=== PATIENT | male | born 1985 | race Caucasian/White ===

== ENCOUNTER → 2018-11-09 | Outpatient (CLI) | payer MEDICAID, SELFPAY ==
[2018-11-09 12:35] VITALS: BMI 47.0
--- NOTE | 2018-11-09 12:48 | RAD_ITS ---
STUDY: X-RAY - PELVIS AND RIGHT HIP REASON FOR EXAM: Right hip pain. TECHNIQUE: 2 views of the pelvis and hip. COMPARISON: None. FINDINGS: There is a small pelvic phlebolith. Normal bilateral iliac wings, sacroiliac joints and visualized sacrum. Normal bilateral superior and inferior pubic rami. Normal pubic symphysis. Normal bilateral ischial tuberosities. There is subchondral mottling of the right femoral head especially on the frog-leg view, possibly representing avascular necrosis. Normal acetabulum. Normal hip joint. RAD/HIP, UNI W/ Pelvis 2-3 Views IMPRESSION: Possible avascular necrosis of the right femoral head. Electronically Signed: Shaggy Huff MD at 15:20 EDT Tel , Service support ,
== END | disposition home or self-care (01) ==
LOC: HPRAD 12:47
PROVIDERS: PCP Nurse Practitioner Family; Referring Provider Orthopaedic Surgery; Visit Provider Orthopaedic Surgery
DX: R10.31 Right lower quadrant pain (principal)
CPT/HCPCS: 73502

== ENCOUNTER → 2018-12-13 | Outpatient (CLI) | payer MEDICAID, SELFPAY ==
[2018-11-09 12:35] VITALS: BMI 47.0
--- NOTE | 2018-12-13 16:54 | MRI_ITS ---
STUDY: MRI RIGHT HIP REASON FOR EXAM: Right hip pain and groin pain for one year. TECHNIQUE: Standardized fat and water weighted pulse sequences were obtained in all 3 orthogonal planes. COMPARISON: Radiographs 11/09/2018. FINDINGS: There is a small right hip joint effusion (proton density sagittal images 13, 14). Normal acetabulum. Normal labrum. There is a subchondral crescentic signal alteration of the superior right femoral head (T1 coronal images 21-23) with associated bone edema (inversion recovery coronal images 21-23) consistent with avascular necrosis without demonstrated subchondral collapse. Normal femoral neck and intratrochanteric region. There is a small herniation pit in the contralateral left femoral head/neck junction with mild adjacent bone edema (inversion recovery coronal image 21). Normal gluteus minimus, medius and iliopsoas tendons and distal insertions. There is no trochanteric, iliopsoas or iliopectineal bursitis. Normal superior and inferior pubic rami. Normal pubic symphysis. Normal ischial tuberosity. Normal origin of the hamstring tendons. Normal visualized iliac wing, sacroiliac joint, and sacral ala. Normal visualized soft tissue structures of the pelvis. MRI/Lower Ext Joint Only (Routine) IMPRESSION: Avascular necrosis of the right femoral head. Small right hip joint effusion. Electronically Signed: Shaggy Huff MD at 10:29 EDT Tel , Service support ,
== END | disposition home or self-care (01) ==
LOC: MRI 16:53
PROVIDERS: Referring Provider Orthopaedic Surgery; Visit Provider Orthopaedic Surgery
DX: R29.898 Other symptoms and signs involving the musculoskeletal system (principal); M87.051 Idiopathic aseptic necrosis of right femur
CPT/HCPCS: 73721

== ENCOUNTER → 2020-01-17 11:38 | Outpatient (CLI) | payer OTHER, SELFPAY ==
[2019-09-01 09:24] VITALS: BMI 47.0
[2020-01-17 13:07] LABS: T4 Free Direct 0.84 ng/dL (0.76-1.46)
== END ==
PROVIDERS: Referring Provider Family Medicine; Visit Provider Family Medicine
DX: E03.9 Hypothyroidism, unspecified (principal)
CPT/HCPCS: 36415; 84439; 84443

== ENCOUNTER → 2020-05-03 14:52 | Outpatient (CLI) | payer OTHER, SELFPAY ==
[2020-04-02 13:51] VITALS: BMI 48.9
[2020-05-03 16:57] LABS: Free T3 3.7 pg/mL (2.18-3.98); T4 Free Direct 1.63 ng/dL (0.76-1.46); Thyroid Stim Hormone (TSH) 0.49 uIU/mL (0.358-3.74)
== END ==
PROVIDERS: Referring Provider Internal Medicine Endocrinology, Diabetes & Metabolism; Visit Provider Internal Medicine Endocrinology, Diabetes & Metabolism
DX: E03.8 Other specified hypothyroidism (principal); E06.3 Autoimmune thyroiditis
CPT/HCPCS: 36415; 84439; 84443; 84481

== ENCOUNTER → 2024-08-04 | Outpatient (CLI) | payer BC, SELFPAY ==
--- OUTSIDE RECORDS SUMMARY | 2024-08-04 07:25 | XMS RPT_ITS | CCD ---
Author Organization [facility] Care Team Providers Care Workgroup Leader Name Role Phone AYANNA CARPENTER. Referring Unavailable AYANNA CARPENTER Admitting Unavailable MILAN SERRATO Referring Unavail able SWIDARYLT, SAMIRA Iqbal Primary Care Unavailable MILAN SERRATO Attending Unavail able SELF, SELF Referring Unavailable SWIHART, SAMIRA Iqbal Primary Care Unavailable CIAYVESICHMILAN BENAVIDES Attending Unavail able SELF, SELF Referring Unavailable SWIDARYLT, SAMIRA Iqbal Primary Care Unavailable AYANNA CARPENTER Attending Unavailable SELF, SELF Referring Unavailable KAREEM, SAMIRA Iqbal Primary Care Unavailable MILAN SERRATO Attending Unavail able MILAN SERRATO Referring Unavail able SWILAWANDA, SAMIRA Iqbal Primary Care Unavailable MILAN SERRATO Attending Unavail able KAREEM, SAMIRA Iqbal Primary Care Unavailable AYANNA CARPENTER Attending Unavailable AYANNA CARPENTER Referring Unavailable SWIDARYLT, SAMIRA Iqbal Primary Care Unavailable SELF, SELF Referring Unavailable AYANNA CARPENTER Attending Unavailable KAREEM, SAMIRA Iqbal Primary Care Unavailable SELF, SELF Referring Unavailable AYANNA CARPENTER Attending Unavailable KAREEM, SAMIRA Iqbal Primary Care Unavailable AYANNA CARPENTER Referring Unavailable AYANNA CARPENTER Attending Unavailable TEN SAENZ Attending Unavailable SWIHART, SAMIRA Iqbal Primary Care Unavailable AYANNA CARPENTER Referring Unavailable AYANNA CARPENTER Attending Unavailable AYANNA CARPENTER Admitting Unavailable SELF, SELF Referring Unavailable IZABELHART, SAMIRA Iqbal Primary Care Unavailable MLIAN SERRATO Attending Unavail able Swihart Samira QUIROZ Unavailable Samira Serna CNP Primary Care Provider [facility] Referring Unavailable [facility] Primary Care Unavailable William Lincoln Attending Unavailable Medications Current Medications Medication Drug Class(es) Dates Sig (Normalized) Sig (Original) acetaminophen 325 mg oral tablet (1 source) Start: 10-09-2020 acetaminophen (TYLENOL) tablet 975 mg DISABILITY PLACARD (3 sources) Start: 09-12-2020 DISABILITY PLACARD Indications: Right hip pain Disability placard end date 01/09/2021 1 Each 0 09/12/2020 Active Start: 11-09-2019 End: 09-12-2020 DISABILITY PLACARD Indicatio ns: Avascular necrosis of bone of right hip Disability placard end date: 02/29/2020 Diagnosis code: Right hip pain 1 Each 0 11/09/2019 09/12/2020 Discontinued (Medication Reconciliation (suppress cancel msg)) levothyroxine sodium 0.1 mg oral tablet (5 sources) l-Thyroxine take 2 tablets by mouth once daily levothyroxine 100 MCG tablet Take 200 mcg by mouth daily. 0 Active multivitamin w/ minerals tablet (5 sources) take 1 tablet by mouth once daily multivitamin w/ minerals tablet Take 1 tablet by mouth daily. 0 Active Completed/Discontinued Medications Medication Drug Class(es) Dates Sig (Normalized) Sig (Original) calcium chloride 0.0014 meq/ml / potassium chloride 0.004 meq/ml / sodium chloride 0.103 meq/ml / sodium lactate 0.028 meq/ml injectable solution (1 source) Start: 10-09-2020 End: 10-09-2020 lactated ringers IV solution 1 ml haloperidol 5 mg/ml injection (1 source) Typical Antipsychotic Start: 10-09-2020 End: 10-09-2020 haloperidol lactate (HALDOL) injection 1 mg HYDROmorphone (DILAUDID) injection 0.2 mg (1 source) Start: 10-09-2020 End: 10-09-2020 HYDROmorphone (DILAUDID) injection 0.2 mg meloxicam 10 mg oral capsule (1 source) Nonsteroidal Anti-inflammatory Drug End: 09-12-2020 take 0.5 tablet by mouth twice daily Meloxicam 10 MG capsule Take by mouth. 0.5 tabs bid 0 09/12/2020 Discontinued (Medication Reconciliation (suppress cancel msg)) mupirocin 0.02 mg/mg nasal ointment (1 source) RNA Synthetase Inhibitor Antibacterial Start: 11-09-2019 End: 09-12-2020 apply 0.5 g nasal route twice daily mupirocin (Bactroban Nasal) 2 % Ointment Indications: Preoperative clearance Intranasal Approximately 0.5 gram applied into each nostril twice daily for 5 days ( Please dispense regular generic mupirocin ointment if nasal ointment is not available or not covered by insurance ) 22 g 0 11/09/2019 09/12/2020 Discontinued (Medication Reconciliation (suppress cancel msg)) oxyCODONE (1 source) Opioid Agonist Start: 10-09-2020 End: 10-09-2020 take 1 tablet by mouth every four hours as needed oxyCODONE (ROXICODONE) tablet 5 mg Problems Active Problems Problem Classification Problem Date Documented Da te Episodic/Chronic Nutritional deficiencies (1 source) Vitamin D deficiency; Translations: [Vitamin D deficiency, unspecified] Chronic Other bone disease and musculoskeletal deformities (7 sources) Avascular necrosis of bone of hip; Translations: [Idiopathic aseptic necrosis of right femur] Onset: 10-19-2019 10-19-2019 Chronic Other nutritional; endocrine; and metabolic disorders (1 source) Body mass index 40+ - severely obese; Translations: [Body mass index (BMI) 45.0-49.9, adult] Chronic Thyroid disorders (3 sources) Nini thyroiditis; Translations: [Autoimmune thyroiditis] Onset: 04-20-2024 Chronic Past or Other Problems Problem Classification Problem Date Documented Da te Episodic/Chronic Other non-traumatic joint disorders (2 sources) Pain in right hip joint; Translations: [Pain in right hip] Episodic Results Test Name Value Interpretation Reference Range Facility Endocrinology Visit Reporton 04-19-2024 Endocrinology Visit Report [facility] [address] [place] [address]. [address] [place] [address] OFFICE VISIT Date of Service: 04/19/24 MR#: [id number] Acct: [id number] Name: GENARO LAKE Rep #: [id number] : 1985 Provider: Aakash Pascual Age/Sex: 38/M Location: [facility] Status: Signed Intake Vital Signs 04/21/23 15:40 04/19/24 15:32 Height 5 ft 7.5 in 5 ft 7.5 in Weight: 380 lb BMI 58.6 BP 144/95 H Blood Pressure Location Rt brachial Position Sitting Pulse 83 Pulse Source Monitor Pulse Oximetry (%) 95 Oxygen Delivery Method room air Intake Visit Reasons: 1 Y FU Chief Complaint: Hypothyroidism Is patient in pain?: No Allergies No Known Allergies Allergy (Verified 04/19/24 15:33) Medications ???Medication ???Instructions ???Recorded ???Confirmed ???Type levothyroxine 200 mcg tablet 200 mcg PO DAILY #60 tabs 04/19/24 04/19/24 Rx PFSH Medical History Avascular necrosis of bone Gout Nini's disease Family History Mother Cancer Seizures Social History Smoking Status: Never smoker alcohol intake: never HPI HPI Chief Complaint: Hypothyroidism Details: GENARO LAKE, is a 38 M who presents to the office today for follow up. He has hypothyroidism. He is noncompliant with medication. I gave him a 60 tablet Rx with no refills one year ago and he still has some pills left. This time, he reports that he gets gout every time he takes levothyroxine. He has gained 36 pounds since last visit. He states he feels fine. ROS Const Constitutional: No fatigue or weight change ENT ENT: No dizziness/vertigo Cardio Cardiology: No chest pain at rest, chest pain with exertion, shortness of breath or palpitations Skin Skin: No wounds Endo Endocrine: No fatigue or weight change Exam Const General: cooperative, healthy appearing, comfortable, no acute distress, well developed and not cushingoid Nutritional Appearance: well nourished and obese Orientation: alert, awake and oriented x3 HENMT Head: normal to inspection Ears: hearing grossly normal bilaterally Nose: external nose normal Mouth: oral mucosae normal Eyes General: appearance normal, both eyes and all related structures Alignment and Position: alignment normal Periorbital: periorbital findings normal Eyelids: eyelids normal Conjunctivae: conjunctivae normal Neck Neck: normal visual inspection Neck mass: No Thyroid: other (difficult exam due to body habitus) Lymphatic: no lymphadenopathy noted Chest Chest palpation inspection: normal inspection of the chest Resp Effort Inspection: normal respiratory effort, able to speak in complete sentences, symmetric chest movement, no audible wheezes and no cough Auscultation: Bilateral: Clear to Auscultation Cardio Rate: regular rate Rhythm: regular rhythm Skin General: no rashes or lesions noted Neuro General: patient alert, patient awake and patient oriented x3 Cranial Nerves: CN's II-XI intact bilaterally Cognition: normal cognition Speech: speech normal Gait: normal gait Motor: muscle tone normal throughout Psych Appearance: grossly normal Mental Status: mental status grossly normal Mood: congruent mood Affect: normal affect Speech and Movement: speech and movement normal Attitude: cooperative Thought Process: normal Thought Content: normal Judgment: judgment good Assessment and Plan Assessment and Plan (1) 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 I explained that we cannot treat gout by keeping him hypothyroid. He agrees to take his medication for 2 months and then to have labs done. I have spent [30] minutes today reviewing labs, records and history. Time includes coordinating care, interpretation of tests, discussion with patient's other health care providers via telephone. This also includes time I spent with the patient for exam, treatment plan and education as well as documenting clinical information. 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 Normal [facility] XR HIP RIGHT 2 VIEWSon 02-20 XR HIP RIGHT 2 VIEWS EXAM: XR HIP RIGHT 4 VIEWS,, 02/20/2021 13:21 PM COMPARISON: Radiographs dated November 22, 2020 CLINICAL INDICATIONS: right hip pain RELEVANT CLINICAL HISTORY: M87.051:Avascular necrosis of bone of right hip AP pelvis (standing) / AP and 45 degree Quiroz view right hip and False profile view? (all views with 30 MM calibration marker. Please place close to affected hip at the level of the bone but without obscuring bone detail)?; FINDINGS: 4 images obtained. Soft Tissue: There is no obvious soft tissue swelling. Bone: Localized area of subchondral lucency noted along the weightbearing aspect of the right femoral head is unchanged. Similar degree of slight articular surface/subchondral collapse is again noted. Postoperative changes relating to core decompression. Hip: Joint spaces are stable. IMPRESSION: Similar appearance of avascular necrosis of the right femoral head with mild subchondral collapse and sequela of prior core decompression. Normal [facility] XR HIP RIGHT 2 VIEWSon 11-22 XR HIP RIGHT 2 VIEWS EXAM: XR HIP RIGHT 3 VIEWS,, 11/22/2020 10:13 AM COMPARISON: Compared to prior study dated October 24, 2020. CLINICAL INDICATIONS: s/p right core decompression RELEVANT CLINICAL HISTORY: M87.051:Avascular necrosis of bone of right hip FINDINGS: 3 images obtained. Soft Tissue: There is no obvious soft tissue swelling. Bone: No acute osseous abnormality. There is a lucent tract through the femoral neck compatible with history of prior core decompression. Ill-defined sclerosis in the femoral head compatible with avascular necrosis. There is some flattening of the convex contour superiorly suggestive of a mild degree of subchondral collapse. The appearance is grossly stable. Hip: The hip joint is anatomically aligned. IMPRESSION: Stable findings of avascular necrosis in the femoral head with mild subchondral collapse and prior core decompression. No new osseous abnormality. Normal [facility] XR HIP RIGHT 2 VIEWSon 10-24 XR HIP RIGHT 2 VIEWS EXAM: XR HIP RIGHT 2 VIEWS VIEWS,, 10/24/2020 10:25 AM COMPARISON: Right hip radiographs September 12, 2020 CLINICAL INDICATIONS: Right Hip Pain RELEVANT CLINICAL HISTORY: M87.051:Avascular necrosis of bone of right hip AP, AP Pelvis, Quiroz View (Standing); FINDINGS: 3 images obtained. Soft Tissue: There is no obvious soft tissue swelling. Bone: No acute osseous abnormality is identified. Status post core decompression on the right. Avascular necrosis of the right femoral head with slight collapse of the superior articular surface appears unchanged. Hip: The hip joint is anatomically aligned. IMPRESSION: Interval core decompression of the right proximal femur. Otherwise stable examination. Avascular necrosis with slight superior articular surface collapse is unchanged. Normal [facility] COVID-19, MOLECULARon 2020 SARS-CoV-2 (COVID-19) RNA KENNEDY+probe Ql (Unsp spec) Not detected Normal Not Detected [facility] Comment on above: Order Comment: Ayanna Carpenter [facility] - GeneralOrthopedic Sfgmkgc0309/26/2020End09/26/20 ; Result Comment: This test was performed under the FDA's Emergency Use Authorization (EUA). Testing was performed using the Reji SARS-CoV-2 RT-PCR assay on the Tamara Reji 6800 System. This test has not been approved for use in asymptomatic patients and its performance in this patient population has not been evaluated. Negative results do not rule out the presence of SARS-CoV-2/COVID-19. Fact sheets for this EUA can be found at the following links: For Healthcare Providers: https://www.fda.gov/media/654730/download For Patients: https://www.fda.gov/media/608947/download Performed By: #### L [id number] #### [facility] [address] [place] [address] Mauricio Lemus M.D. [id number] CBC AND ELECTRONIC DIFFon Basophils (Bld) [#/Vol] 0.05 10*3/uL Normal 0.00-0.09 [facility] Comment on above: Performed By: #### L [id number] #### [facility] (DEFAULT) [address] [address] Basophils/100 WBC (Bld) 0.8 % Normal [facility] Comment on above: Performed By: #### L [id number] #### [facility] (DEFAULT) [address] [place] [address] DIFF STATUS Electronic Differential Normal [facility] Comment on above: Performed By: #### L [id number] #### [facility] (DEFAULT) [address] [place] [address] Eosinophils (Bld) [#/Vol] 0.19 10*3/uL Normal 0.00-0.48 [facility] Comment on above: Performed By: #### L [id number] #### [facility] (DEFAULT) [address] [address] Eosinophils/100 WBC (Bld) 2.9 % Normal [facility] Comment on above: Performed By: #### L [id number] #### [facility] (DEFAULT) [address] [address] Hematocrit (Bld) [Volume fraction] 51.8 % High 39.6-48.8 [facility] Comment on above: Performed By: #### L [id number] #### [facility] (DEFAULT) [address] [address] Hemoglobin (Bld) [Mass/Vol] 16.3 g/dL Normal 13.4-16.8 [facility] Comment on above: Performed By: #### L [id number] #### [facility] (DEFAULT) [address] [address] Immature Grans % 0.5 % Normal [facility] Comment on above: Performed By: #### L [id number] #### [facility] (DEFAULT) [address] [address] Immature Grans Absolute <0.04 Normal <=0.08 [facility] Comment on above: Performed By: #### L [id number] #### [facility] (DEFAULT) [address] [place] [address] Lymphocytes (Bld) [#/Vol] 2.78 10*3/uL Normal 0.83-3.57 [facility] Comment on above: Performed By: #### L [id number] #### [facility] (DEFAULT) [address] [address] Lymphocytes/100 WBC (Bld) 42.2 % Normal [facility] Comment on above: Performed By: #### L [id number] #### [facility] (DEFAULT) [address] [address] MCV (RBC) [Entitic vol] 89.5 fL Normal 79.0-94.5 [facility] Comment on above: Performed By: #### L [id number] #### [facility] (DEFAULT) [address] [address] Mean Cell Hgb 28.2 pg Normal 26.1-33.3 [facility] Comment on above: Performed By: #### L [id number] #### [facility] (DEFAULT) [address] [address] Mean Cell Hgb Conc 31.5 g/dL Low 31.9-36.5 [facility] Comment on above: Performed By: #### L [id number] #### [facility] (DEFAULT) [address] [address] Monocytes (Bld) [#/Vol] 0.64 10*3/uL Normal 0.24-0.93 [facility] Comment on above: Performed By: #### L [id number] #### [facility] (DEFAULT) [address] [address] Monocytes/100 WBC (Bld) 9.7 % Normal [facility] Comment on above: Performed By: #### L [id number] #### [facility] (DEFAULT) [address] [address] Nucleated RBC 0.0 /100 WBC Normal <=0.2 [facility] Comment on above: Performed By: #### L [id number] #### [facility] (DEFAULT) [address] [address] Platelet mean volume (Bld) [Entitic vol] 9.2 fL Normal 8.7-12.3 [facility] Comment on above: Performed By: #### L [id number] #### [facility] (DEFAULT) [address] [place] [address] Platelets (Bld) [#/Vol] 340 10*3/uL High 146-337 [facility] Comment on above: Performed By: #### L [id number] #### [facility] (DEFAULT) [address] [place] [address] RBC (Bld) [#/Vol] 5.79 10*6/uL Normal 4.38-5.83 [facility] Comment on above: Performed By: #### L [id number] #### [facility] (DEFAULT) [address] [place] [address] RBC Distribution 15.4 % High 10.9-14.3 [facility] Comment on above: Performed By: #### L [id number] #### [facility] (DEFAULT) [address] [place] [address] Segs + Bands Auto 43.9 % Normal [facility] Comment on above: Performed By: #### L [id number] #### [facility] (DEFAULT) [address] [place] [address] Segs + Bands,Absolute Auto 2.89 K/uL Normal 1.57-6.19 [facility] Comment on above: Performed By: #### L [id number] #### [facility] (DEFAULT) [address] [place] [address] WBC (Bld) [#/Vol] 6.58 10*3/uL Normal 3.73-10.10 [facility] Comment on above: Performed By: #### L [id number] #### [facility] (DEFAULT) [address] [address] CHEM 6 (LYTES, BUN CREA)on 0 09-12-2020 Anion gap [Moles/Vol] 14 mmol/L 7 - 17 mmol/L [facility] Chloride [Moles/Vol] 103 mmol/L 98 - 108 mmol/L [facility] CO2 [Moles/Vol] 29 mmol/L 22 - 30 mmol/L [facility] Creatinine [Mass/Vol] 1.14 mg/dL 0.70 - 1.30 mg/dL [facility] Potassium [Moles/Vol] 4.3 mmol/L 3.5 - 5.0 mmol/L [facility] Sodium [Moles/Vol] 142 mmol/L 133 - 143 mmol/L [facility] Urea nitrogen [Mass/Vol] 18 mg/dL 7 - 22 mg/dL [facility] Urea nitrogen/Creatinine [Mass ratio] 16 mg/mg [facility] Anion gap [Moles/Vol] 14 mmol/L Normal 7-17 [facility] Comment on above: Performed By: #### C HM6 #### [facility] (DEFAULT) [address] [address] Chloride [Moles/Vol] 103 mmol/L Normal 98-108 [facility] Comment on above: Performed By: #### C HM6 #### [facility] (DEFAULT) [address] [address] CO2 [Moles/Vol] 29 mmol/L Normal 22-30 [facility] Comment on above: Performed By: #### C HM6 #### [facility] (DEFAULT) [address] [address] Creatinine [Mass/Vol] 1.14 mg/dL Normal 0.70-1.30 [facility] Comment on above: Performed By: #### C HM6 #### [facility] (DEFAULT) [address] [address] EST GFR, >=60 Normal >=60 [facility] Comment on above: Performed By: #### C HM6 #### [facility] (DEFAULT) [address] [place] [address] EST GFR,Non >=60 Normal >=60 [facility] Comment on above: Performed By: #### C HM6 #### [facility] (DEFAULT) [address] [place] [address] Potassium [Moles/Vol] 4.3 mmol/L Normal 3.5-5.0 [facility] Comment on above: Performed By: #### C HM6 #### [facility] (DEFAULT) [address] [place] [address] Sodium [Moles/Vol] 142 mmol/L Normal 133-143 [facility] Comment on above: Performed By: #### C HM6 #### [facility] (DEFAULT) [address] [place] [address] Urea nitrogen [Mass/Vol] 18 mg/dL Normal 7-22 [facility] Comment on above: Performed By: #### C HM6 #### [facility] (DEFAULT) [address] [place] [address] Urea nitrogen/Creatinine [Mass ratio] 16 mg/mg Normal [facility] Comment on above: Performed By: #### C HM6 #### [facility] (DEFAULT) [address] [place] [address] Laboratory - Chemistry and C hemistry - challengeon 09-12-2020 GFR/1.73 sq M.predicted MDRD (S/P/Bld) [Vol rate/Area] mL/min/{1.73_m2} >=60 mL/min/1.73sq M [facility] PT,INR,PTTon 09-12-2020 aPTT Coag (Bld) [Time] 30.8 s Normal 24.0-34.3 [facility] Comment on above: Performed By: #### P TPTT #### [facility] (DEFAULT) [address] [place] [address] INR Coag (PPP) [Relative time] 1.0 {INR} Normal 0.9-1.1 [facility] Comment on above: Performed By: #### P TPTT #### [facility] (DEFAULT) [address] [place] [address] PT Coag (PPP) [Time] 13.4 s Normal 11.9-14.2 [facility] Comment on above: Performed By: #### P TPTT #### [facility] (DEFAULT) [address] [place] [address] aPTT Coag (PPP) [Time] 30.[address] [facility] INR Coag (Bld) [Relative time] 1.0 {INR} [facility] Interpretation and review of laboratory results Normal [facility] PT Coag (PPP) [Time] 13.4 s [facility] TSH W/FT4 REFLEXon Interpretation and review of laboratory results Normal [facility] TSH Qn 0.692 m[IU]/L [facility] TSH 0.692 uIU/mL Normal 0.550-4.780 [facility] Comment on above: Performed By: #### T SHQR #### [facility] (DEFAULT) [address] [place] [address] XR HIP RIGHT 2 VIEWSon 09-12 XR HIP RIGHT 2 VIEWS EXAM: XR HIP RIGHT 3 VIEWS, 09/12/2020 13:03 PM COMPARISON: Right hip radiographs 10/03/2019, MRI bilateral hips 10/19/2019 CLINICAL INDICATIONS: right hip pain RELEVANT CLINICAL HISTORY: M25.551:Right hip pain Standing AP pelvis / AP and 45 degree Quiroz view of right Hip, False profile view of right Hip - all views with;30 MM calibration marker. Please place close to affected hip at the level of the bone but without obscuring bone detail.; FINDINGS: 5 images obtained. Soft Tissue: There is no obvious soft tissue swelling. Bone: No acute osseous abnormality is identified. There is left-sided lumbosacral transitional anatomy. Hip: Avascular necrosis is seen in the right femoral head with mild superior femoral head flattening suggestive of early subchondral collapse. Avascular necrosis is seen in the left hip without subchondral collapse. IMPRESSION: Avascular necrosis of the femoral heads bilaterally with early subchondral collapse on the right. Left-sided lumbosacral transitional anatomy. Normal [facility] IMPRESSION: Avascular necrosis of the femoral heads bilaterally with early subchondral collapse on the right. Left-sided lumbosacral transitional anatomy. OLOGY EXAM: XR HIP RIGHT 3 VIEWS, 09/12/2020 13:03 PM COMPARISON: Right hip radiographs 10/03/2019, MRI bilateral hips 10/19/2019 CLINICAL INDICATIONS: right hip pain RELEVANT CLINICAL HISTORY: M25.551:Right hip pain Standing AP pelvis / AP and 45 degree Quiroz view of right Hip, False profile view of right Hip - all views with;30 MM calibration marker. Please place close to affected hip at the level of the bone but without obscuring bone detail.; FINDINGS: 5 images obtained. Soft Tissue: There is no obvious soft tissue swelling. Bone: No acute osseous abnormality is identified. There is left-sided lumbosacral transitional anatomy. Hip: Avascular necrosis is seen in the right femoral head with mild superior femoral head flattening suggestive of early subchondral collapse. Avascular necrosis is seen in the left hip without subchondral collapse. [facility] Gus Pleitez MD - 09/12/2020 EXAM: XR HIP RIGHT 3 VIEWS, 09/12/2020 13:03 PM COMPARISON: Right hip radiographs 10/03/2019, MRI bilateral hips 10/19/2019 CLINICAL INDICATIONS: right hip pain RELEVANT CLINICAL HISTORY: M25.551:Right hip pain Standing AP pelvis / AP and 45 degree Quiroz view of right Hip, False profile view of right Hip - all views with;30 MM calibration marker. Please place close to affected hip at the level of the bone but without obscuring bone detail.; FINDINGS: 5 images obtained. Soft Tissue: There is no obvious soft tissue swelling. Bone: No acute osseous abnormality is identified. There is left-sided lumbosacral transitional anatomy. Hip: Avascular necrosis is seen in the right femoral head with mild superior femoral head flattening suggestive of early subchondral collapse. Avascular necrosis is seen in the left hip without subchondral collapse. IMPRESSION IMPRESSION: Avascular necrosis of the femoral heads bilaterally with early subchondral collapse on the right. Left-sided lumbosacral transitional anatomy. [facility] Radiology [facility] (narrative) [facility] RIGHT 2 VIEWSOrdered By: Gus Pleitez on 09-12-[address] [facility] Work Phone: CBC and Differentialon 10-20 Abs Baso 0.06 k/uL Normal <0.11 [facility] Comment on above: Performed By: #### C BCDIF, CMP, LIPB, TSH, FT4, VITD ####[facility] [id number] Telephone [place] [phone] Abs [place] 0.52 k/uL Normal <0.87 [facility] Comment on above: Performed By: #### C BCDIF, CMP, LIPB, TSH, FT4, VITD ####[facility] [id number] Telephone [place] [phone] Abs Neut 3.93 k/uL Normal 1.45-7.50 [facility] Comment on above: Performed By: #### C BCDIF, CMP, LIPB, TSH, FT4, VITD ####[facility] [id number] Telephone [place] [phone] Absolute nRBC <0.01 Normal <0.01 [facility] Comment on above: Performed By: #### C BCDIF, CMP, LIPB, TSH, FT4, VITD ####[facility] Neb8781 Telephone [phone] Basophils/100 WBC (Bld) 0.8 % Normal [facility] Comment on above: Performed By: #### C BCDIF, CMP, LIPB, TSH, FT4, VITD ####[place] [address] [phone] DTYPE ADIFF Normal [facility] Comment on above: Performed By: #### C BCDIF, CMP, LIPB, TSH, FT4, VITD ####[place] [address] Telephone [place] [phone] Eosinophils (Bld) [#/Vol] 0.24 10*3/uL Normal <0.46 [facility] Comment on above: Performed By: #### C BCDIF, CMP, LIPB, TSH, FT4, VITD ####[place] [address] Telephone [place] [phone] Eosinophils/100 WBC (Bld) 3.1 % Normal [facility] Comment on above: Performed By: #### C BCDIF, CMP, LIPB, TSH, FT4, VITD ####[address] [place] [phone] Erythrocyte distribution width (RBC) [Ratio] 15.5 % High 11.5-15.0 [facility] Comment on above: Performed By: #### C BCDIF, CMP, LIPB, TSH, FT4, VITD ####[address] [place] [phone] Hematocrit (Bld) [Volume fraction] 46.2 % Normal 39.0-51.0 [facility] Comment on above: Performed By: #### C BCDIF, CMP, LIPB, TSH, FT4, VITD ####[place] [address] Telephone [place] [phone] Hemoglobin (Bld) [Mass/Vol] 13.7 g/dL Normal 13.0-17.0 [facility] Comment on above: Performed By: #### C BCDIF, CMP, LIPB, TSH, FT4, VITD ####[place] [address] Telephone [place], [place] [phone] Lymphocytes (Bld) [#/Vol] 2.87 10*3/uL Normal 1.00-4.00 [facility] Comment on above: Performed By: #### C BCDIF, CMP, LIPB, TSH, FT4, VITD ####[place] [address] Telephone [place], [place] [phone] Lymphocytes/100 WBC (Bld) 37.7 % Normal [facility] Comment on above: Performed By: #### C BCDIF, CMP, LIPB, TSH, FT4, VITD ####[address] [phone] MCH (RBC) [Entitic mass] 27.2 pG Normal 26.0-34.0 [facility] Comment on above: Performed By: #### C BCDIF, CMP, LIPB, TSH, FT4, VITD ####[address] [place], [place] [phone] MCHC (RBC) [Mass/Vol] 29.7 g/dL Low 30.5-36.0 [facility] Comment on above: Performed By: #### C BCDIF, CMP, LIPB, TSH, FT4, VITD ####[address] [place], [place] [phone] MCV (RBC) [Entitic vol] 91.7 fL Normal 80.0-100.0 [facility] Comment on above: Performed By: #### C BCDIF, CMP, LIPB, TSH, FT4, VITD ####[address] [place], [place] [phone] Monocytes/100 WBC (Bld) 6.8 % Normal [facility] Comment on above: Performed By: #### C BCDIF, CMP, LIPB, TSH, FT4, VITD ####[place] [address] Telephone [place] [phone] Neutrophils/100 WBC (Bld) 51.6 % Normal [facility] Comment on above: Performed By: #### C BCDIF, CMP, LIPB, TSH, FT4, VITD ####[place] [address] Telephone [place] [phone] NRBCs 0.0 /100 WBC Normal 0 [facility] Comment on above: Performed By: #### C BCDIF, CMP, LIPB, TSH, FT4, VITD ####[address] [place] [phone] Platelet mean volume (Bld) [Entitic vol] 10.4 fL Normal 9.0-12.7 [facility] Comment on above: Performed By: #### C BCDIF, CMP, LIPB, TSH, FT4, VITD ####[place] [phone] Platelets (Bld) [#/Vol] 358 10*3/uL Normal 150-400 [facility] Comment on above: Performed By: #### C BCDIF, CMP, LIPB, TSH, FT4, VITD ####[address] [place] [phone] RBC (Bld) [#/Vol] 5.04 10*6/uL Normal 4.20-6.00 [facility] Comment on above: Performed By: #### C BCDIF, CMP, LIPB, TSH, FT4, VITD ####[address] [place], [place] [phone] WBC (Bld) [#/Vol] 7.62 10*3/uL Normal 3.70-11.00 [facility] Comment on above: Performed By: #### C BCDIF, CMP, LIPB, TSH, FT4, VITD ####[facility] [id number] Telephone [place] [phone] Comp Metabolic Panelon 10-20 Albumin [Mass/Vol] 4.4 g/dL Normal 3.9-4.9 [facility] Comment on above: Performed By: #### C BCDIF, CMP, LIPB, TSH, FT4, VITD ####[place] [address] Telephone [place] [phone] ALP [Catalytic activity/Vol] 93 U/L Normal 38-113 [facility] Comment on above: Performed By: #### C BCDIF, CMP, LIPB, TSH, FT4, VITD ####[address] [place] [phone] ALT [Catalytic activity/Vol] 37 U/L Normal 10-54 [facility] Comment on above: Performed By: #### C BCDIF, CMP, LIPB, TSH, FT4, VITD ####[place] [address] Telephone [place] [phone] Anion gap [Moles/Vol] 13 mmol/L Normal 9-18 [facility] Comment on above: Performed By: #### C BCDIF, CMP, LIPB, TSH, FT4, VITD ####[address] [place] [phone] AST [Catalytic activity/Vol] 39 U/L Normal 14-40 [facility] Comment on above: Performed By: #### C BCDIF, CMP, LIPB, TSH, FT4, VITD ####[place] [address] Telephone [place] [phone] Bilirubin Ql (U) 0.3 mg/dL Normal 0.2-1.3 [facility] Comment on above: Performed By: #### C BCDIF, CMP, LIPB, TSH, FT4, VITD ####[place] [address] Telephone [place] [phone] Calcium [Mass/Vol] 10.1 mg/dL Normal 8.5-10.2 [facility] Lab Comment on above: Performed By: #### C BCDIF, CMP, LIPB, TSH, FT4, VITD ####[address] [place] [phone] Chloride [Moles/Vol] 101 mmol/L Normal 97-105 [facility] Comment on above: Performed By: #### C BCDIF, CMP, LIPB, TSH, FT4, VITD ####[address] [place] [phone] CO2 [Moles/Vol] 27 mmol/L Normal 22-30 [facility] Comment on above: Performed By: #### C BCDIF, CMP, LIPB, TSH, FT4, VITD ####[place] [address] Telephone [place] [phone] Creatinine [Mass/Vol] 1.26 mg/dL High 0.73-1.22 [facility] Comment on above: Performed By: #### C BCDIF, CMP, LIPB, TSH, FT4, VITD ####[place] [address] Telephone [place] [phone] eGFR- Amer. >60 Normal [facility] Comment on above: Performed By: #### C BCDIF, CMP, LIPB, TSH, FT4, VITD ####[place] [address] Telephone [place] [phone] GFR/1.73 sq M predicted among non-blacks MDRD (S/P/Bld) [Vol rate/Area] mL/min/{1.73_m2} Normal [facility] Comment on above: Performed By: #### C BCDIF, CMP, LIPB, TSH, FT4, VITD ####[place] [address] Telephone [place], [place] [phone] Glucose [Mass/Vol] 71 mg/dL Low 74-99 [facility] Comment on above: Performed By: #### C BCDIF, CMP, LIPB, TSH, FT4, VITD ####[place] [phone] Potassium [Moles/Vol] 4.4 mmol/L Normal 3.7-5.1 [facility] Comment on above: Performed By: #### C BCDIF, CMP, LIPB, TSH, FT4, VITD ####[place] [phone] Protein [Mass/Vol] 7.1 g/dL Normal 6.3-8.0 [facility] Comment on above: Performed By: #### C BCDIF, CMP, LIPB, TSH, FT4, VITD ####[address] [place], [place] [phone] Sodium [Moles/Vol] 141 mmol/L Normal 136-144 [facility] Comment on above: Performed By: #### C BCDIF, CMP, LIPB, TSH, FT4, VITD ####[place] [address] Telephone [place], [place] [phone] Urea nitrogen [Mass/Vol] 18 mg/dL Normal 9-24 [facility] Comment on above: Performed By: #### C BCDIF, CMP, LIPB, TSH, FT4, VITD ####[place] [address] Telephone [place] [phone] Free T4on 10-20-2018 Free T4 [Mass/Vol] 0.3 ng/dL Low 0.9-1.7 [facility] Comment on above: Performed By: #### C BCDIF, CMP, LIPB, TSH, FT4, VITD ####[facility] [id number] Telephone [place], [place] [phone] Lipid Panel, Basicon 019 Cholesterol [Mass/Vol] 180 mg/dL Normal <200 [facility] Comment on above: Performed By: #### C BCDIF, CMP, LIPB, TSH, FT4, VITD ####[facility] Telephone [place], [place] [phone] Cholesterol in HDL [Mass/Vol] 37 mg/dL Low >39 [facility] Comment on above: Performed By: #### C BCDIF, CMP, LIPB, TSH, FT4, VITD ####[facility] Telephone [place], [place] [phone] Cholesterol in LDL [Mass/Vol] 104 mg/dL High <100 [facility] Comment on above: Performed By: #### C BCDIF, CMP, LIPB, TSH, FT4, VITD ####[facility]phone [place], [place] [phone] Cholesterol in VLDL [Mass/Vol] 39 mg/dL High <30 [facility] Comment on above: Performed By: #### C BCDIF, CMP, LIPB, TSH, FT4, VITD ####[facility] Telephone [place], [place] [phone] Cholesterol non HDL [Mass/Vol] 143 mg/dL High <130 [facility] Comment on above: Performed By: #### C BCDIF, CMP, LIPB, TSH, FT4, VITD ####[facility] [id number] Telephone [place], [place] [phone] LDL:HDL Ratio 2.81 High <2.54 [facility] Comment on above: Performed By: #### C BCDIF, CMP, LIPB, TSH, FT4, VITD ####[place] [phone] TC:HDL Ratio 4.86 Normal <5.10 [facility] Comment on above: Performed By: #### C BCDIF, CMP, LIPB, TSH, FT4, VITD ####[place] [phone] Triglyceride [Mass/Vol] 193 mg/dL High <150 [facility] Comment on above: Performed By: #### C BCDIF, CMP, LIPB, TSH, FT4, VITD ####[place] [phone] Fasting Time 12 hrs Normal [facility] Comment on above: Performed By: #### C BCDIF, CMP, LIPB, TSH, FT4, VITD ####[address] [phone] TSHon 10-20-2018 TSH Qn 80.000 uU/mL High 0.400-5.500 [facility] Comment on above: Performed By: #### C BCDIF, CMP, LIPB, TSH, FT4, VITD ####[address] [phone] Vitamin D 25 Hydroxyon 10-20 Vitamin D 25 Hydroxy 32.0 ng/mL Normal 31.0-80.0 [facility] Comment on above: Performed By: #### C BCDIF, CMP, LIPB, TSH, FT4, VITD ####[address] [phone] CBC and Differentialon 08-05 Abs Baso 0.07 k/uL Normal <0.11 [facility] Comment on above: Performed By: #### C MP, LIPB, FT4, TSH, VITD, HBA1C, CBCDIF ####[place] [address] Telephone [place] [phone] Abs [place] 0.54 k/uL Normal <0.87 [facility] Comment on above: Performed By: #### C MP, LIPB, FT4, TSH, VITD, HBA1C, CBCDIF ####[place] [address] Telephone [place] [phone] Abs Neut 2.93 k/uL Normal 1.45-7.50 [facility] Comment on above: Performed By: #### C MP, LIPB, FT4, TSH, VITD, HBA1C, CBCDIF ####[place] [phone] Absolute nRBC <0.01 Normal <0.01 [facility] Comment on above: Performed By: #### C MP, LIPB, FT4, TSH, VITD, HBA1C, CBCDIF ####[place] [address] Telephone [place] [phone] Basophils/100 WBC (Bld) 1.2 % Normal [facility] Comment on above: Performed By: #### C MP, LIPB, FT4, TSH, VITD, HBA1C, CBCDIF ####[place] [address] Telephone [place] [phone] DTYPE ADIFF Normal [facility] Comment on above: Performed By: #### C MP, LIPB, FT4, TSH, VITD, HBA1C, CBCDIF ####[place] [address] Telephone [place] [phone] Eosinophils (Bld) [#/Vol] 0.16 10*3/uL Normal <0.46 [facility] Comment on above: Performed By: #### C MP, LIPB, FT4, TSH, VITD, HBA1C, CBCDIF ####[facility] Lhr1730 Telephone [place] [phone] Eosinophils/100 WBC (Bld) 2.7 % Normal [facility] Comment on above: Performed By: #### C MP, LIPB, FT4, TSH, VITD, HBA1C, CBCDIF ####[place] [address] Telephone [place] [phone] Erythrocyte distribution width (RBC) [Ratio] 15.8 % High 11.5-15.0 [facility] Comment on above: Performed By: #### C MP, LIPB, FT4, TSH, VITD, HBA1C, CBCDIF ####[place] [address] Telephone [place] [phone] Hematocrit (Bld) [Volume fraction] 45.7 % Normal 39.0-51.0 [facility] Comment on above: Performed By: #### C MP, LIPB, FT4, TSH, VITD, HBA1C, CBCDIF ####[place] [address] Telephone [place] [phone] Hemoglobin (Bld) [Mass/Vol] 13.5 g/dL Normal 13.0-17.0 [facility] Comment on above: Performed By: #### C MP, LIPB, FT4, TSH, VITD, HBA1C, CBCDIF ####[place] [address] Telephone [place] [phone] Lymphocytes (Bld) [#/Vol] 2.19 10*3/uL Normal 1.00-4.00 [facility] Comment on above: Performed By: #### C MP, LIPB, FT4, TSH, VITD, HBA1C, CBCDIF ####[place] [address] Telephone [place] [phone] Lymphocytes/100 WBC (Bld) 37.1 % Normal [facility] Comment on above: Performed By: #### C MP, LIPB, FT4, TSH, VITD, HBA1C, CBCDIF ####[facility] Yug5794 Telephone [place], [place] [phone] MCH (RBC) [Entitic mass] 28.2 pG Normal 26.0-34.0 [facility] Comment on above: Performed By: #### C MP, LIPB, FT4, TSH, VITD, HBA1C, CBCDIF ####[place] [address] Telephone [place], [place] [phone] MCHC (RBC) [Mass/Vol] 29.5 g/dL Low 30.5-36.0 [facility] Comment on above: Performed By: #### C MP, LIPB, FT4, TSH, VITD, HBA1C, CBCDIF ####[place] [address] Telephone [place], [place] [phone] MCV (RBC) [Entitic vol] 95.4 fL Normal 80.0-100.0 [facility] Comment on above: Performed By: #### C MP, LIPB, FT4, TSH, VITD, HBA1C, CBCDIF ####[facility] Telephone [place], [place] [phone] Monocytes/100 WBC (Bld) 9.2 % Normal [facility] Comment on above: Performed By: #### C MP, LIPB, FT4, TSH, VITD, HBA1C, CBCDIF ####[facility] Cvo1646 Telephone [place], [place] [phone] Neutrophils/100 WBC (Bld) 49.8 % Normal [facility] Comment on above: Performed By: #### C MP, LIPB, FT4, TSH, VITD, HBA1C, CBCDIF ####[facility] [id number] Telephone [place], [place] [phone] NRBCs 0.0 /100 WBC Normal 0 [facility] Comment on above: Performed By: #### C MP, LIPB, FT4, TSH, VITD, HBA1C, CBCDIF ####[facility] [id number] Telephone [place], [place] [phone] Platelet mean volume (Bld) [Entitic vol] 10.0 fL Normal 9.0-12.7 [facility] Comment on above: Performed By: #### C MP, LIPB, FT4, TSH, VITD, HBA1C, CBCDIF ####[place] [address] Telephone [place], [place] [phone] Platelets (Bld) [#/Vol] 350 10*3/uL Normal 150-400 [facility] Comment on above: Performed By: #### C MP, LIPB, FT4, TSH, VITD, HBA1C, CBCDIF ####[place] [address] Telephone [place], [place] [phone] RBC (Bld) [#/Vol] 4.79 10*6/uL Normal 4.20-6.00 [facility] Lab Comment on above: Performed By: #### C MP, LIPB, FT4, TSH, VITD, HBA1C, CBCDIF ####[place] [address] Telephone [place], [place] [phone] WBC (Bld) [#/Vol] Normal 3.70-11.00 [facility] Lab Comment on above: Result Comment: 5.90 No clot detected. Performed By: #### C MP, LIPB, FT4, TSH, VITD, HBA1C, CBCDIF ####[place] [address] Telephone [place], [place] [phone] Comp Metabolic Panelon 08-04 Albumin [Mass/Vol] 4.8 g/dL Normal 3.9-4.9 [facility] Lab Comment on above: Performed By: #### C MP, LIPB, FT4, TSH, VITD, HBA1C, CBCDIF ####[place] [address] Telephone [place] [phone] ALP [Catalytic activity/Vol] 95 U/L Normal 38-113 [facility] Comment on above: Performed By: #### C MP, LIPB, FT4, TSH, VITD, HBA1C, CBCDIF ####[address] [place] [phone] ALT [Catalytic activity/Vol] 45 U/L Normal 10-54 [facility] Comment on above: Performed By: #### C MP, LIPB, FT4, TSH, VITD, HBA1C, CBCDIF ####[place] [phone] Anion gap [Moles/Vol] 14 mmol/L Normal 9-18 [facility] Comment on above: Performed By: #### C MP, LIPB, FT4, TSH, VITD, HBA1C, CBCDIF ####[place] [phone] AST [Catalytic activity/Vol] 40 U/L Normal 14-40 [facility] Comment on above: Performed By: #### C MP, LIPB, FT4, TSH, VITD, HBA1C, CBCDIF ####[address] [place] [phone] Bilirubin Ql (U) 0.4 mg/dL Normal 0.2-1.3 [facility] Reference Lab Comment on above: Performed By: #### C MP, LIPB, FT4, TSH, VITD, HBA1C, CBCDIF ####[address] [place], [place] [phone] Calcium [Mass/Vol] 10.3 mg/dL High 8.5-10.2 [facility] Lab Comment on above: Performed By: #### C MP, LIPB, FT4, TSH, VITD, HBA1C, CBCDIF ####[place] [phone] Chloride [Moles/Vol] 103 mmol/L Normal 97-105 [facility] Comment on above: Performed By: #### C MP, LIPB, FT4, TSH, VITD, HBA1C, CBCDIF ####[place] [phone] CO2 [Moles/Vol] 27 mmol/L Normal 22-30 [facility] Comment on above: Performed By: #### C MP, LIPB, FT4, TSH, VITD, HBA1C, CBCDIF ####[place] [phone] Creatinine [Mass/Vol] 1.19 mg/dL Normal 0.73-1.22 [facility] Comment on above: Performed By: #### C MP, LIPB, FT4, TSH, VITD, HBA1C, CBCDIF ####[place] [phone] eGFR- Amer. >60 Normal [facility] Lab Comment on above: Performed By: #### C MP, LIPB, FT4, TSH, VITD, HBA1C, CBCDIF ####[place] [phone] GFR/1.73 sq M predicted among non-blacks MDRD (S/P/Bld) [Vol rate/Area] mL/min/{1.73_m2} Normal [facility] Comment on above: Performed By: #### C MP, LIPB, FT4, TSH, VITD, HBA1C, CBCDIF ####[place] [phone] Glucose [Mass/Vol] 82 mg/dL Normal 74-99 [facility] Lab Comment on above: Performed By: #### C MP, LIPB, FT4, TSH, VITD, HBA1C, CBCDIF ####[address] [phone] Potassium [Moles/Vol] 4.6 mmol/L Normal 3.7-5.1 [facility] Comment on above: Performed By: #### C MP, LIPB, FT4, TSH, VITD, HBA1C, CBCDIF ####[place] [phone] Protein [Mass/Vol] 7.7 g/dL Normal 6.3-8.0 [facility] Lab Comment on above: Performed By: #### C MP, LIPB, FT4, TSH, VITD, HBA1C, CBCDIF ####[place] [phone] Sodium [Moles/Vol] 144 mmol/L Normal 136-144 [facility] Lab Comment on above: Performed By: #### C MP, LIPB, FT4, TSH, VITD, HBA1C, CBCDIF ####[address] [phone] Urea nitrogen [Mass/Vol] 16 mg/dL Normal 9-24 [facility] Comment on above: Performed By: #### C MP, LIPB, FT4, TSH, VITD, HBA1C, CBCDIF ####[address] [phone] Free T4on 08-04-2018 Free T4 [Mass/Vol] 0.7 ng/dL Low 0.9-1.7 [facility] Lab Comment on above: Performed By: #### C MP, LIPB, FT4, TSH, VITD, HBA1C, CBCDIF ####[address] [phone] Hemoglobin A1con 08-04-2018 HbA1c (Bld) [Mass fraction] 103 mg/dL Normal [facility] Comment on above: Performed By: #### C MP, LIPB, FT4, TSH, VITD, HBA1C, CBCDIF ####[facility] [id number] Telephone [place], [place] [phone] HbA1c (Bld) [Mass fraction] 5.2 % Normal 4.3-5.6 [facility] Comment on above: Performed By: #### C MP, LIPB, FT4, TSH, VITD, HBA1C, CBCDIF ####[place] [address] Telephone [place], [place] [phone] Lipid Panel, Basicon 019 Cholesterol [Mass/Vol] 204 mg/dL High <200 [facility] Comment on above: Performed By: #### C MP, LIPB, FT4, TSH, VITD, HBA1C, CBCDIF ####[address] [phone] Cholesterol in HDL [Mass/Vol] 37 mg/dL Low >39 [facility] Comment on above: Performed By: #### C MP, LIPB, FT4, TSH, VITD, HBA1C, CBCDIF ####[place] [address] Telephone [place], [place] [phone] Cholesterol in LDL [Mass/Vol] 138 mg/dL High <100 [facility] Comment on above: Performed By: #### C MP, LIPB, FT4, TSH, VITD, HBA1C, CBCDIF ####[facility] [id number] Telephone [place], [place] [phone] Cholesterol in VLDL [Mass/Vol] 29 mg/dL Normal <30 [facility] Comment on above: Performed By: #### C MP, LIPB, FT4, TSH, VITD, HBA1C, CBCDIF ####[place] [address] Telephone [place] [phone] Cholesterol non HDL [Mass/Vol] 167 mg/dL High <130 [facility] Comment on above: Performed By: #### C MP, LIPB, FT4, TSH, VITD, HBA1C, CBCDIF ####[place] [address] Telephone [place] [phone] LDL:HDL Ratio 3.73 High <2.54 [facility] Comment on above: Performed By: #### C MP, LIPB, FT4, TSH, VITD, HBA1C, CBCDIF ####[place] [phone] TC:HDL Ratio 5.51 High <5.10 [facility] Comment on above: Performed By: #### C MP, LIPB, FT4, TSH, VITD, HBA1C, CBCDIF ####[place] [phone] Triglyceride [Mass/Vol] 145 mg/dL Normal <150 [facility] Comment on above: Performed By: #### C MP, LIPB, FT4, TSH, VITD, HBA1C, CBCDIF ####[address] [phone] Fasting Time 12 hrs Normal [facility] Comment on above: Performed By: #### C MP, LIPB, FT4, TSH, VITD, HBA1C, CBCDIF ####[place] [phone] TSHon 08-04-2018 TSH Qn 38.190 uU/mL High 0.400-5.500 [facility] Comment on above: Performed By: #### C MP, LIPB, FT4, TSH, VITD, HBA1C, CBCDIF ####[address] [place] [phone] Vitamin D 25 Hydroxyon 08-04 Vitamin D 25 Hydroxy 26.0 ng/mL Low 31.0-80.0 [facility] Comment on above: Performed By: #### C MP, LIPB, FT4, TSH, VITD, HBA1C, CBCDIF ####[place] [phone] CBC and Differentialon 05-19 Abs Baso 0.07 k/uL Normal <0.11 [facility] Comment on above: Performed By: #### C BCDIF, CMP, LIPB, TSH, FREET3, FT4, VITD ####[place] [phone] Abs [place] 0.52 k/uL Normal <0.87 [facility] Comment on above: Performed By: #### C BCDIF, CMP, LIPB, TSH, FREET3, FT4, VITD ####[place] [phone] Abs Neut 3.62 k/uL Normal 1.45-7.50 [facility] Comment on above: Performed By: #### C BCDIF, CMP, LIPB, TSH, FREET3, FT4, VITD ####[place] [phone] Absolute nRBC <0.01 Normal <0.01 [facility] Comment on above: Performed By: #### C BCDIF, CMP, LIPB, TSH, FREET3, FT4, VITD ####[place] [phone] Basophils/100 WBC (Bld) 0.9 % Normal [facility] Comment on above: Performed By: #### C BCDIF, CMP, LIPB, TSH, FREET3, FT4, VITD ####[place] [id number] Telephone [place] [phone] DTYPE ADIFF Normal [facility] Comment on above: Performed By: #### C BCDIF, CMP, LIPB, TSH, FREET3, FT4, VITD ####[place] [address] Telephone [place] [phone] Eosinophils (Bld) [#/Vol] 0.18 10*3/uL Normal <0.46 [facility] Comment on above: Performed By: #### C BCDIF, CMP, LIPB, TSH, FREET3, FT4, VITD ####[place] [address] Telephone [place] [phone] Eosinophils/100 WBC (Bld) 2.4 % Normal [facility] Comment on above: Performed By: #### C BCDIF, CMP, LIPB, TSH, FREET3, FT4, VITD ####[address] [place] [phone] Erythrocyte distribution width (RBC) [Ratio] 14.1 % Normal 11.5-15.0 [facility] Comment on above: Performed By: #### C BCDIF, CMP, LIPB, TSH, FREET3, FT4, VITD ####[place] [phone] Hematocrit (Bld) [Volume fraction] 44.8 % Normal 39.0-51.0 [facility] Comment on above: Performed By: #### C BCDIF, CMP, LIPB, TSH, FREET3, FT4, VITD ####[place] [address] Telephone [place] [phone] Hemoglobin (Bld) [Mass/Vol] 13.6 g/dL Normal 13.0-17.0 [facility] Comment on above: Performed By: #### C BCDIF, CMP, LIPB, TSH, FREET3, FT4, VITD ####[place] [address] Telephone [place], [place] [phone] Lymphocytes (Bld) [#/Vol] 3.18 10*3/uL Normal 1.00-4.00 [facility] Comment on above: Performed By: #### C BCDIF, CMP, LIPB, TSH, FREET3, FT4, VITD ####[place] [address] Telephone [place], [place] [phone] Lymphocytes/100 WBC (Bld) 42.0 % Normal [facility] Comment on above: Performed By: #### C BCDIF, CMP, LIPB, TSH, FREET3, FT4, VITD ####[address] [phone] MCH (RBC) [Entitic mass] 28.9 pG Normal 26.0-34.0 [facility] Comment on above: Performed By: #### C BCDIF, CMP, LIPB, TSH, FREET3, FT4, VITD ####[address] [phone] MCHC (RBC) [Mass/Vol] 30.4 g/dL Low 30.5-36.0 [facility] Comment on above: Performed By: #### C BCDIF, CMP, LIPB, TSH, FREET3, FT4, VITD ####[address] [place], [place] [phone] MCV (RBC) [Entitic vol] 95.3 fL Normal 80.0-100.0 [facility] Comment on above: Performed By: #### C BCDIF, CMP, LIPB, TSH, FREET3, FT4, VITD ####[address] [phone] Monocytes/100 WBC (Bld) 6.9 % Normal [facility] Comment on above: Performed By: #### C BCDIF, CMP, LIPB, TSH, FREET3, FT4, VITD ####[place] [address] Telephone [place], [place] [phone] Neutrophils/100 WBC (Bld) 47.8 % Normal [facility] Comment on above: Performed By: #### C BCDIF, CMP, LIPB, TSH, FREET3, FT4, VITD ####[place] [address] Telephone [place], [place] [phone] NRBCs 0.0 /100 WBC Normal 0 [facility] Comment on above: Performed By: #### C BCDIF, CMP, LIPB, TSH, FREET3, FT4, VITD ####[address] [place], [place] [phone] Platelet mean volume (Bld) [Entitic vol] 10.3 fL Normal 9.0-12.7 [facility] Comment on above: Performed By: #### C BCDIF, CMP, LIPB, TSH, FREET3, FT4, VITD ####[place] [address] Telephone [place], [place] [phone] Platelets (Bld) [#/Vol] 357 10*3/uL Normal 150-400 [facility] Comment on above: Performed By: #### C BCDIF, CMP, LIPB, TSH, FREET3, FT4, VITD ####[place] [address] Telephone [place], [place] [phone] RBC (Bld) [#/Vol] 4.70 10*6/uL Normal 4.20-6.00 [facility] Comment on above: Performed By: #### C BCDIF, CMP, LIPB, TSH, FREET3, FT4, VITD ####[place] [address] Telephone [place], [place] [phone] WBC (Bld) [#/Vol] 7.57 10*3/uL Normal 3.70-11.00 [facility] Comment on above: Performed By: #### C BCDIF, CMP, LIPB, TSH, FREET3, FT4, VITD ####[place] [address] [place], [place] [phone] Comp Metabolic Panelon 05-19 Albumin [Mass/Vol] 4.7 g/dL Normal 3.9-4.9 [facility] Comment on above: Performed By: #### C BCDIF, CMP, LIPB, TSH, FREET3, FT4, VITD ####[address] [phone] ALP [Catalytic activity/Vol] 85 U/L Normal 38-113 [facility] Comment on above: Performed By: #### C BCDIF, CMP, LIPB, TSH, FREET3, FT4, VITD ####[address] [phone] ALT [Catalytic activity/Vol] 23 U/L Normal 10-54 [facility] Comment on above: Performed By: #### C BCDIF, CMP, LIPB, TSH, FREET3, FT4, VITD ####[address] [phone] Anion gap [Moles/Vol] 13 mmol/L Normal 9-18 [facility] Comment on above: Performed By: #### C BCDIF, CMP, LIPB, TSH, FREET3, FT4, VITD ####[address] [place], [place] [phone] AST [Catalytic activity/Vol] 23 U/L Normal 14-40 [facility] Comment on above: Performed By: #### C BCDIF, CMP, LIPB, TSH, FREET3, FT4, VITD ####[place] [phone] Bilirubin Ql (U) 0.4 mg/dL Normal 0.2-1.3 [facility] Comment on above: Performed By: #### C BCDIF, CMP, LIPB, TSH, FREET3, FT4, VITD ####[phone] Calcium [Mass/Vol] 10.1 mg/dL Normal 8.5-10.2 [facility] Comment on above: Performed By: #### C BCDIF, CMP, LIPB, TSH, FREET3, FT4, VITD ####[place] [phone] Chloride [Moles/Vol] 101 mmol/L Normal 97-105 [facility] Comment on above: Performed By: #### C BCDIF, CMP, LIPB, TSH, FREET3, FT4, VITD ####[place] [phone] CO2 [Moles/Vol] 29 mmol/L Normal 22-30 [facility] Comment on above: Performed By: #### C BCDIF, CMP, LIPB, TSH, FREET3, FT4, VITD ####[place] [phone] Creatinine [Mass/Vol] 1.28 mg/dL High 0.73-1.22 [facility] Comment on above: Performed By: #### C BCDIF, CMP, LIPB, TSH, FREET3, FT4, VITD ####[place] [phone] eGFR- Amer. >60 Normal [facility] Comment on above: Performed By: #### C BCDIF, CMP, LIPB, TSH, FREET3, FT4, VITD ####[address] [phone] GFR/1.73 sq M predicted among non-blacks MDRD (S/P/Bld) [Vol rate/Area] mL/min/{1.73_m2} Normal [facility] Comment on above: Performed By: #### C BCDIF, CMP, LIPB, TSH, FREET3, FT4, VITD ####[address] [phone] Glucose [Mass/Vol] 84 mg/dL Normal 74-99 [facility] Comment on above: Performed By: #### C BCDIF, CMP, LIPB, TSH, FREET3, FT4, VITD ####[address] [phone] Potassium [Moles/Vol] 4.4 mmol/L Normal 3.7-5.1 [facility] Comment on above: Performed By: #### C BCDIF, CMP, LIPB, TSH, FREET3, FT4, VITD ####[address] [phone] Protein [Mass/Vol] 7.9 g/dL Normal 6.3-8.0 [facility] Comment on above: Performed By: #### C BCDIF, CMP, LIPB, TSH, FREET3, FT4, VITD ####[address] [phone] Sodium [Moles/Vol] 143 mmol/L Normal 136-144 [facility] Comment on above: Performed By: #### C BCDIF, CMP, LIPB, TSH, FREET3, FT4, VITD ####[address] [phone] Urea nitrogen [Mass/Vol] 17 mg/dL Normal 9-24 [facility] Comment on above: Performed By: #### C BCDIF, CMP, LIPB, TSH, FREET3, FT4, VITD ####[place] [address] Telephone [place] [phone] Free T3on 05-19-2018 Free T3 [Mass/Vol] 1.9 pg/mL Low 2.3-4.1 [facility] Comment on above: Performed By: #### C BCDIF, CMP, LIPB, TSH, FREET3, FT4, VITD ####[place] [address] [place] [phone] Free T4on 05-19-2018 Free T4 [Mass/Vol] 0.6 ng/dL Low 0.9-1.7 [facility] Comment on above: Performed By: #### C BCDIF, CMP, LIPB, TSH, FREET3, FT4, VITD ####[address] [phone] Lipid Panel, Basicon 019 Cholesterol [Mass/Vol] 158 mg/dL Normal <200 [facility] Comment on above: Performed By: #### C BCDIF, CMP, LIPB, TSH, FREET3, FT4, VITD ####[address] [phone] Cholesterol in HDL [Mass/Vol] 31 mg/dL Low >39 [facility] Comment on above: Performed By: #### C BCDIF, CMP, LIPB, TSH, FREET3, FT4, VITD ####[address] [phone] Cholesterol in LDL [Mass/Vol] 82 mg/dL Normal <100 [facility] Comment on above: Performed By: #### C BCDIF, CMP, LIPB, TSH, FREET3, FT4, VITD ####[place] [phone] Cholesterol in VLDL [Mass/Vol] 45 mg/dL High <30 [facility] Comment on above: Performed By: #### C BCDIF, CMP, LIPB, TSH, FREET3, FT4, VITD ####[place] [phone] Cholesterol non HDL [Mass/Vol] 127 mg/dL Normal <130 [facility] Comment on above: Performed By: #### C BCDIF, CMP, LIPB, TSH, FREET3, FT4, VITD ####[place] [phone] LDL:HDL Ratio 2.65 High <2.54 [facility] Comment on above: Performed By: #### C BCDIF, CMP, LIPB, TSH, FREET3, FT4, VITD ####[place] [phone] TC:HDL Ratio 5.10 High <5.10 [facility] Comment on above: Performed By: #### C BCDIF, CMP, LIPB, TSH, FREET3, FT4, VITD ####[place] [phone] Triglyceride [Mass/Vol] 224 mg/dL High <150 [facility] Comment on above: Performed By: #### C BCDIF, CMP, LIPB, TSH, FREET3, FT4, VITD ####[place] [phone] Fasting Time 12 hrs Normal [facility] Comment on above: Performed By: #### C BCDIF, CMP, LIPB, TSH, FREET3, FT4, VITD ####[place] [phone] TSHon 05-19-2018 TSH Qn 62.810 uU/mL High 0.400-5.500 [facility] Comment on above: Performed By: #### C BCDIF, CMP, LIPB, TSH, FREET3, FT4, VITD ####[place] [phone] Vitamin D 25 Hydroxyon 05-19 Vitamin D 25 Hydroxy 39.5 ng/mL Normal 31.0-80.0 [facility] Comment on above: Performed By: #### C BCDIF, CMP, LIPB, TSH, FREET3, FT4, VITD ####[place] [phone] CBC and Differentialon 03-04 Abs Baso 0.05 k/uL Normal <0.11 [facility] Comment on above: Performed By: #### C BCDIF, CMP, LIPB, TSH, FREET3, FT4, VITD #### [facility] [address] [place] [phone] Abs [place] 0.58 k/uL Normal <0.87 [facility] Comment on above: Performed By: #### C BCDIF, CMP, LIPB, TSH, FREET3, FT4, VITD #### [facility] [address] [place] [phone] Abs Neut 3.16 k/uL Normal 1.45-7.50 [facility] Comment on above: Performed By: #### C BCDIF, CMP, LIPB, TSH, FREET3, FT4, VITD #### [facility] [address] [place] [phone] Absolute nRBC <0.01 Normal <0.01 [facility] Comment on above: Performed By: #### C BCDIF, CMP, LIPB, TSH, FREET3, FT4, VITD #### [facility] [address] [place] [address] Basophils/100 WBC (Bld) 0.8 % Normal [facility] Comment on above: Performed By: #### C BCDIF, CMP, LIPB, TSH, FREET3, FT4, VITD #### [facility] [address] [place] [address] DTYPE ADIFF Normal [facility] Comment on above: Performed By: #### C BCDIF, CMP, LIPB, TSH, FREET3, FT4, VITD #### [facility] [address] [place] [phone] Eosinophils (Bld) [#/Vol] 0.20 10*3/uL Normal <0.46 [facility] Comment on above: Performed By: #### C BCDIF, CMP, LIPB, TSH, FREET3, FT4, VITD #### [facility] [address] [place] [phone] Eosinophils/100 WBC (Bld) 3.1 % Normal [facility] Comment on above: Performed By: #### C BCDIF, CMP, LIPB, TSH, FREET3, FT4, VITD #### [facility] [address] [place] [phone] Erythrocyte distribution width (RBC) [Ratio] 14.6 % Normal 11.5-15.0 [facility] Comment on above: Performed By: #### C BCDIF, CMP, LIPB, TSH, FREET3, FT4, VITD #### [facility] [address] [place] [address] Hematocrit (Bld) [Volume fraction] 39.3 % Normal 39.0-51.0 [facility] Comment on above: Performed By: #### C BCDIF, CMP, LIPB, TSH, FREET3, FT4, VITD #### [facility] [address] [place], [place] [address] Hemoglobin (Bld) [Mass/Vol] 12.1 g/dL Low 13.0-17.0 [facility] Comment on above: Performed By: #### C BCDIF, CMP, LIPB, TSH, FREET3, FT4, VITD #### [facility] [address] [place], [place] [address] Lymphocytes (Bld) [#/Vol] 2.42 10*3/uL Normal 1.00-4.00 [facility] Comment on above: Performed By: #### C BCDIF, CMP, LIPB, TSH, FREET3, FT4, VITD #### [facility] [address] [place] [address] Lymphocytes/100 WBC (Bld) 37.6 % Normal [facility] Comment on above: Performed By: #### C BCDIF, CMP, LIPB, TSH, FREET3, FT4, VITD #### [facility] [address] [place] [address] MCH (RBC) [Entitic mass] 30.0 pG Normal 26.0-34.0 [facility] Comment on above: Performed By: #### C BCDIF, CMP, LIPB, TSH, FREET3, FT4, VITD #### [facility] [address] [place] [address] MCHC (RBC) [Mass/Vol] 30.8 g/dL Normal 30.5-36.0 [facility] Comment on above: Performed By: #### C BCDIF, CMP, LIPB, TSH, FREET3, FT4, VITD #### [facility] [address] [place], [place] [address] MCV (RBC) [Entitic vol] 97.5 fL Normal 80.0-100.0 [facility] Comment on above: Performed By: #### C BCDIF, CMP, LIPB, TSH, FREET3, FT4, VITD #### [facility] [address] [place], [place] [address] Monocytes/100 WBC (Bld) 9.0 % Normal [facility] Comment on above: Performed By: #### C BCDIF, CMP, LIPB, TSH, FREET3, FT4, VITD #### [facility] [address] [place] [address] Neutrophils/100 WBC (Bld) 49.5 % Normal [facility] Comment on above: Performed By: #### C BCDIF, CMP, LIPB, TSH, FREET3, FT4, VITD #### [facility] [address] [place] [address] NRBCs 0.0 /100 WBC Normal 0 [facility] Comment on above: Performed By: #### C BCDIF, CMP, LIPB, TSH, FREET3, FT4, VITD #### [facility] [address] [place] [address] Platelet mean volume (Bld) [Entitic vol] 10.8 fL Normal 9.0-12.7 [facility] Comment on above: Performed By: #### C BCDIF, CMP, LIPB, TSH, FREET3, FT4, VITD #### [facility] [address] [place] [address] Platelets (Bld) [#/Vol] 332 10*3/uL Normal 150-400 [facility] Comment on above: Performed By: #### C BCDIF, CMP, LIPB, TSH, FREET3, FT4, VITD #### [facility] [address] [place] [address] RBC (Bld) [#/Vol] 4.03 10*6/uL Low 4.20-6.00 [facility] Comment on above: Performed By: #### C BCDIF, CMP, LIPB, TSH, FREET3, FT4, VITD #### [facility] [address] [place], [place] [address] WBC (Bld) [#/Vol] 6.43 10*3/uL Normal 3.70-11.00 [facility] Comment on above: Performed By: #### C BCDIF, CMP, LIPB, TSH, FREET3, FT4, VITD #### [facility] [address] [place] [address] Comp Metabolic Panelon 03-04 Albumin [Mass/Vol] 4.9 g/dL Normal 3.9-4.9 [facility] Comment on above: Performed By: #### C BCDIF, CMP, LIPB, TSH, FREET3, FT4, VITD #### [facility] [address] [place] [address] ALP [Catalytic activity/Vol] 79 U/L Normal 38-113 [facility] Comment on above: Performed By: #### C BCDIF, CMP, LIPB, TSH, FREET3, FT4, VITD #### [facility] [address] [place] [address] ALT [Catalytic activity/Vol] 23 U/L Normal 10-54 [facility] Comment on above: Performed By: #### C BCDIF, CMP, LIPB, TSH, FREET3, FT4, VITD #### [facility] [address] [place], [place] [address] Anion gap [Moles/Vol] 15 mmol/L Normal 9-18 [facility] Comment on above: Performed By: #### C BCDIF, CMP, LIPB, TSH, FREET3, FT4, VITD #### [facility] [address] [place], [place] [address] AST [Catalytic activity/Vol] 33 U/L Normal 14-40 [facility] Comment on above: Performed By: #### C BCDIF, CMP, LIPB, TSH, FREET3, FT4, VITD #### [facility] [address] [place] [address] Bilirubin Ql (U) 0.4 mg/dL Normal 0.2-1.3 [facility] Comment on above: Performed By: #### C BCDIF, CMP, LIPB, TSH, FREET3, FT4, VITD #### [facility] [address] [place] [address] Calcium [Mass/Vol] 10.5 mg/dL High 8.5-10.2 [facility] Comment on above: Performed By: #### C BCDIF, CMP, LIPB, TSH, FREET3, FT4, VITD #### [facility] [address] [place] [address] Chloride [Moles/Vol] 97 mmol/L Normal 97-105 [facility] Comment on above: Performed By: #### C BCDIF, CMP, LIPB, TSH, FREET3, FT4, VITD #### [facility] [address] [place] [address] CO2 [Moles/Vol] 29 mmol/L Normal 22-30 [facility] Comment on above: Performed By: #### C BCDIF, CMP, LIPB, TSH, FREET3, FT4, VITD #### [facility] [address] [place] [phone] Creatinine [Mass/Vol] 1.36 mg/dL High 0.73-1.22 [facility] Comment on above: Performed By: #### C BCDIF, CMP, LIPB, TSH, FREET3, FT4, VITD #### [facility] [address] [place] [address] eGFR- Amer. >60 Normal [facility] Comment on above: Performed By: #### C BCDIF, CMP, LIPB, TSH, FREET3, FT4, VITD #### [facility] [address] [place], [place] [address] GFR/1.73 sq M predicted among non-blacks MDRD (S/P/Bld) [Vol rate/Area] 60 . Normal [facility] Comment on above: Performed By: #### C BCDIF, CMP, LIPB, TSH, FREET3, FT4, VITD #### [facility] [address], [place] [address] Glucose [Mass/Vol] 83 mg/dL Normal 74-99 [facility] Comment on above: Performed By: #### C BCDIF, CMP, LIPB, TSH, FREET3, FT4, VITD #### [facility] [address], [place] [address] Potassium [Moles/Vol] 4.6 mmol/L Normal 3.7-5.1 [facility] Comment on above: Performed By: #### C BCDIF, CMP, LIPB, TSH, FREET3, FT4, VITD #### [facility] [address], [place] [address] Protein [Mass/Vol] 8.1 g/dL High 6.3-8.0 [facility] Comment on above: Performed By: #### C BCDIF, CMP, LIPB, TSH, FREET3, FT4, VITD #### [facility] [address], [place] [address] Sodium [Moles/Vol] 141 mmol/L Normal 136-144 [facility] Comment on above: Performed By: #### C BCDIF, CMP, LIPB, TSH, FREET3, FT4, VITD #### [facility] [address], [place] [address] Urea nitrogen [Mass/Vol] 21 mg/dL Normal 9-24 [facility] Comment on above: Performed By: #### C BCDIF, CMP, LIPB, TSH, FREET3, FT4, VITD #### [facility] [address], [place] [address] Free T3on 03-04-2018 Free T3 [Mass/Vol] 2.1 pg/mL Low 2.3-4.1 [facility] Comment on above: Performed By: #### C BCDIF, CMP, LIPB, TSH, FREET3, FT4, VITD ####[facility] [address] [place] [address] [phone] Free T4on 03-04-2018 Free T4 [Mass/Vol] 0.7 ng/dL Low 0.9-1.7 [facility] Comment on above: Performed By: #### C BCDIF, CMP, LIPB, TSH, FREET3, FT4, VITD ####[facility] [id number] [place] [address] [phone] Lipid Panel, Basicon 019 Cholesterol [Mass/Vol] 133 mg/dL Normal <200 [facility] Comment on above: Performed By: #### C BCDIF, CMP, LIPB, TSH, FREET3, FT4, VITD ####[address] [phone] Cholesterol in HDL [Mass/Vol] 36 mg/dL Low >39 [facility] Comment on above: Performed By: #### C BCDIF, CMP, LIPB, TSH, FREET3, FT4, VITD ####[address] [phone] Cholesterol in LDL [Mass/Vol] 74 mg/dL Normal <100 [facility] Comment on above: Performed By: #### C BCDIF, CMP, LIPB, TSH, FREET3, FT4, VITD ####[place] [phone] Cholesterol in VLDL [Mass/Vol] 23 mg/dL Normal <30 [facility] Comment on above: Performed By: #### C BCDIF, CMP, LIPB, TSH, FREET3, FT4, VITD ####[place] [phone] Cholesterol non HDL [Mass/Vol] 97 mg/dL Normal <130 [facility] Comment on above: Performed By: #### C BCDIF, CMP, LIPB, TSH, FREET3, FT4, VITD ####[place] [phone] LDL:HDL Ratio 2.06 Normal <2.54 [facility] Comment on above: Performed By: #### C BCDIF, CMP, LIPB, TSH, FREET3, FT4, VITD ####[place] [phone] TC:HDL Ratio 3.69 Normal <5.10 [facility] Comment on above: Performed By: #### C BCDIF, CMP, LIPB, TSH, FREET3, FT4, VITD ####[place] [phone] Triglyceride [Mass/Vol] 113 mg/dL Normal <150 [facility] Comment on above: Performed By: #### C BCDIF, CMP, LIPB, TSH, FREET3, FT4, VITD ####[place] [phone] Fasting Time 12 hrs Normal [facility] Comment on above: Performed By: #### C BCDIF, CMP, LIPB, TSH, FREET3, FT4, VITD ####[place] [phone] TSHon 03-04-2018 TSH Qn 41.620 uU/mL High 0.400-5.500 [facility] Comment on above: Performed By: #### C BCDIF, CMP, LIPB, TSH, FREET3, FT4, VITD ####[facility] [address] [place], [place] [phone] Vitamin D 25 Hydroxyon 03-04 Vitamin D 25 Hydroxy 37.8 ng/mL Normal 31.0-80.0 [facility] Comment on above: Performed By: #### C BCDIF, CMP, LIPB, TSH, FREET3, FT4, VITD ####[facility] [id number] [place] [address] [phone] CBC and Differentialon 01-20 Abs Baso 0.09 k/uL Normal <0.11 [facility] Abs [place] 0.42 k/uL Normal <0.87 [facility] Abs Neut 3.11 k/uL Normal 1.45-7.50 [facility] Absolute nRBC <0.01 Normal <0.01 [facility] Basophils/100 WBC (Bld) 1.5 % Normal [facility] DTYPE ADIFF Normal [facility] Eosinophils (Bld) [#/Vol] 0.18 10*3/uL Normal <0.46 [facility] Eosinophils/100 WBC (Bld) 2.9 % Normal [facility] Erythrocyte distribution width (RBC) [Ratio] 15.1 % High 11.5-15.0 [facility] Hematocrit (Bld) [Volume fraction] 43.1 % Normal 39.0-51.0 [facility] Hemoglobin (Bld) [Mass/Vol] 13.6 g/dL Normal 13.0-17.0 [facility] Lymphocytes (Bld) [#/Vol] 2.33 10*3/uL Normal 1.00-4.00 [facility] Lymphocytes/100 WBC (Bld) 37.9 % Normal [facility] MCH (RBC) [Entitic mass] 30.4 pG Normal 26.0-34.0 [facility] MCHC (RBC) [Mass/Vol] 31.6 g/dL Normal 30.5-36.0 [facility] MCV (RBC) [Entitic vol] 96.4 fL Normal 80.0-100.0 [facility] Monocytes/100 WBC (Bld) 6.8 % Normal [facility] Neutrophils/100 WBC (Bld) 50.9 % Normal [facility] NRBCs 0.0 /100 WBC Normal 0 [facility] Platelet mean volume (Bld) [Entitic vol] 11.8 fL Normal 9.0-12.7 [facility] Platelets (Bld) [#/Vol] 266 10*3/uL Normal 150-400 [facility] RBC (Bld) [#/Vol] 4.47 10*6/uL Normal 4.20-6.00 [facility] WBC (Bld) [#/Vol] 6.15 10*3/uL Normal 3.70-11.00 [facility] Comp Metabolic Panelon 01-20 Albumin [Mass/Vol] 5.3 g/dL High 3.9-4.9 [facility] ALP [Catalytic activity/Vol] 54 U/L Normal 38-113 [facility] ALT [Catalytic activity/Vol] 26 U/L Normal 10-54 [facility] Anion gap [Moles/Vol] 16 mmol/L Normal 9-18 [facility] AST [Catalytic activity/Vol] 76 U/L High 14-40 [facility] Bilirubin Ql (U) 0.3 mg/dL Normal 0.2-1.3 [facility] Calcium [Mass/Vol] 10.6 mg/dL High 8.5-10.2 [facility] Chloride [Moles/Vol] 96 mmol/L Low 97-105 [facility] CO2 [Moles/Vol] 29 mmol/L Normal 22-30 [facility] Creatinine [Mass/Vol] 1.70 mg/dL High 0.73-1.22 [facility] eGFR- Amer. 56 Normal [facility] GFR/1.73 sq M predicted among non-blacks MDRD (S/P/Bld) [Vol rate/Area] 46 . Normal [facility] Glucose [Mass/Vol] 69 mg/dL Low 74-99 [facility] Potassium [Moles/Vol] 4.8 mmol/L Normal 3.7-5.1 [facility] Protein [Mass/Vol] 8.0 g/dL Normal 6.3-8.0 [facility] Sodium [Moles/Vol] 141 mmol/L Normal 136-144 [facility] Urea nitrogen [Mass/Vol] 15 mg/dL Normal 9-24 [facility] Free T3on 01-20-2018 Free T3 [Mass/Vol] rechecked. Low 2.3-4.1 [facility] Free T4on 01-20-2018 Free T4 [Mass/Vol] rechecked. Low 0.9-1.7 [facility] Hemoglobin A1con 01-20-2018 HbA1c (Bld) [Mass fraction] 5.6 % Normal 4.3-5.6 [facility] HbA1c (Bld) [Mass fraction] 114 mg/dL Normal [facility] Lipid Panel, Basicon 018 Cholesterol [Mass/Vol] 465 mg/dL High <200 [facility] Cholesterol in HDL [Mass/Vol] 48 mg/dL Normal >39 [facility] Cholesterol in LDL [Mass/Vol] 372 mg/dL High <100 [facility] Cholesterol in VLDL [Mass/Vol] 45 mg/dL High <30 [facility] Cholesterol non HDL [Mass/Vol] 417 mg/dL High <130 [facility] LDL:HDL Ratio 7.75 High <2.54 [facility] TC:HDL Ratio 9.69 High <5.10 [facility] Triglyceride [Mass/Vol] 226 mg/dL High <150 [facility] Fasting Time 3 hrs Normal [facility] TSHon 01-20-2018 TSH Qn 182.100 uU/mL High 0.400-5.500 [facility] Vitamin D 25 Hydroxyon 01-20 Vitamin D 25 Hydroxy 11.5 ng/mL Low 31.0-80.0 [facility] Vital Signs Date Time Vital Sign Value Performing Clinician Faci lity 10-09-2020 09:30-0400 Body temperature 97.5 [degF] Ayanna Carpenter MD Work Phone: [facility] 10-09-2020 09:30-0400 Diastolic blood pressure 66 mm[Hg] Ayanna Carpenter MD Work Phone: [facility] 10-09-2020 09:30-0400 Heart rate 66 /min Ayanna Carpenter MD Work Phone: [facility] 10-09-2020 09:30-0400 Respiratory rate 16 /min Ayanna Carpenter MD Work Phone: [facility] 10-09-2020 09:30-0400 SaO2% (BldA) [Mass fraction] 97 % Ayanna Carpenter MD Work Phone: [facility] 10-09-2020 09:30-0400 Systolic blood pressure 137 mm[Hg] Ayanna Carpenter MD Work Phone: [facility] 10-09-2020 05:39-0400 Body height 172.7 cm Ayanna Carpenter MD Work Phone: [facility] 10-09-2020 05:39-0400 Body mass index (BMI) [Ratio] 45.61 kg/m2 Ayanna Carpentre MD Work Phone: [facility] 10-09-2020 05:39-0400 Body weight 136.08 kg Ayanna Carpenter MD Work Phone: [facility] 09-12-2020 09:59-0400 Body height 171.5 cm Ten Saenz CYANIDE POT TENDER-BIOSTATISTICS DIRECTOR Work Phone: [facility] 09-12-2020 09:59-0400 Body mass index (BMI) [Ratio] 46.29 kg/m2 Ten Saenz CYANIDE POT TENDER-BIOSTATISTICS DIRECTOR Work Phone: [facility] 09-12-2020 09:59-0400 Body weight 136.08 kg Ten Saenz CYANIDE POT TENDER-BIOSTATISTICS DIRECTOR Work Phone: [facility] 09-12-2020 09:59-0400 Diastolic blood pressure 81 mm[Hg] Ten Saenz CYANIDE POT TENDER-BIOSTATISTICS DIRECTOR Work Phone: [facility] 09-12-2020 09:59-0400 Heart rate 77 /min Ten Saenz CYANIDE POT TENDER-BIOSTATISTICS DIRECTOR Work Phone: [facility] 09-12-2020 09:59-0400 Respiratory rate 14 /min Ten Saenz CYANIDE POT TENDER-BIOSTATISTICS DIRECTOR Work Phone: [facility] 09-12-2020 09:59-0400 SaO2% (BldA) [Mass fraction] 98 % Ten Saenz CYANIDE POT TENDER-BIOSTATISTICS DIRECTOR Work Phone: [facility] 09-12-2020 09:59-0400 Systolic blood pressure 149 mm[Hg] Ten Saenz CYANIDE POT TENDER-BIOSTATISTICS DIRECTOR Work Phone: [facility] Encounters Encounter Date Encounter Type Care Provider Facility Start: 04-19-2024 End: 04-19-2024 ambulatory [facility] Facility[facility] Start: 02-20-2021 ambulatory SAMIRA SERNA Facility :[facility] Start: 11-22-2020 ambulatory SAMIRA SERNA Facility :[facility] Start: 10-24-2020 ambulatory MILAN SERRATO Facility:[facility] Start: 10-09-2020 End: 10-09-2020 Telephone encounter Ayanna Carpenter MD Work Phone: [facility] [place] Comment on above: Other Start: 10-09-2020 End: 10-09-2020 ambulatory AYANNA CARPENTER Facility:[facility] Start: 10-09-2020 End: 10-09-2020 Evaluation and management of inpatient Ayanna Carpenter MD Work Phone: [facility] Comment on above: Avascular necrosis o f bone of right hip Start: 10-04-2020 End: 10-04-2020 ambulatory AYANNA CARPENTER [facility] Start: 10-01-2020 ambulatory SELF SELF Facility:[facility] Start: 09-12-2020 ambulatory SELF SELF Facility:[facility] Start: 09-12-2020 End: 09-12-2020 Patient encounter procedure Milan Serrato PA-C Work Phone: Sports Medicine [facility] Comment on above: Right hip pain (Prim joselyn Dx) Start: 09-12-2020 End: 09-12-2020 Subsequent hospital visit by physician Milan Serrato PA-C Work Phone: Imaging [facility] Comment on above: Arrived Start: 09-12-2020 ambulatory SELF SELF Facility:[facility] Start: 09-12-2020 End: 09-12-2020 Office outpatient visit 25 minutes Ten Saenz CYANIDE POT TENDER-BIOSTATISTICS DIRECTOR Work Phone: Pre-Procedure Evaluation and Assessment Outpatient Care [facility] Comment on above: Preoperative examina tion (Primary Dx); Nini's disease; Vitamin D deficiency; BMI 45.0-49.9, adult; Avascular necrosis of bone of right hip Start: 09-12-2020 End: 09-12-2020 Preprocedural examination done Ten Saenz CYANIDE POT TENDER-BIOSTATISTICS DIRECTOR Work Phone: Pre-Procedure Evaluation and Assessment Outpatient Care [facility] Procedures Date Procedure Procedure Detail Performing Clinician Start: 09-12-2020 Radex hip unilateral with pelvis 2-3 views Milan Serrato PA-C Work Phone: Plan of Treatment Date Care Activity Detail Author Start: 09-12-2021 Thyroid stimulating hormone measurement TSH [facility] Start: 11-22-2020 End: 11-22-2020 Patient encounter procedure 11/22/2020 Office Visit Sports Medicine Ayanna Carpenter MD [address] [phone] Sports Medicine [facility] Start: 10-24-2020 End: 09-08-2021 Patient encounter procedure 10/24/2020 Office Visit Sports Medicine Milan Serrato PA-C [address] [place] [address] [facility] [place] Start: 10-17-2020 Influenza vaccination INFLUENZA VACC INE (#1) [facility] Start: 10-09-2020 End: 10-09-2020 Evaluation and management of inpatient [facility] Comment on above: Avascular necrosis o f bone of right hip [facility] Start: 10-09-2020 End: 10-09-2020 B1 grf fem h/n intertrchntric/subtrchnt [place] [facility] Start: 10-09-2020 End: 10-09-2020 Diagnostic bone marrow aspirations [facility] Start: 10-09-2020 End: 10-09-2020 Exc b1 leasing assistant/b9 olegario w/agrft req sep inc [facility] Start: 05-27-2002 Third diphtheria, tetanus and acellular pertussis (DTaP) vaccination TDAP (ADULT) [facility] Start: 05-27-2001 Tetanus vaccination TETANUS [facility] Start: 05-27-1998 HIV screening HIV SCREENING DISCUSSION [facility] Start: 1995 COVID-19 VACCINE (1) COVID-19 VACCIN E (1) [facility] Start: 1983 Hepatitis C antibody , confirmatory test HEPATITIS C VIRUS SCREENING [facility] End: 10-09-2020 Fluoroscopy during operation [facility] Work Phone: Comment on above: One Time for 1 Occur rences starting 10/09/2020 until 10/09/2020 Payers Date Payer Category Payer Self-pay 2023 Unknown [id number] 2019 Private Health Insurance [id number] 2019 Private Health Insurance OMER LAWLER [id number] 2019-Present [address] CANDIE BERNSTEIN [address] [id number] 1983 Unknown [id number] 94 1983 Unknown [id number] 94 1983 Unknown [id number] 94 1983 Unknown [id number] 94 1983 Unknown [id number] 1983 Unknown [id number] 1983 Unknown [id number] 94 1983 Unknown [id number] [id number] 94 1983 Unknown [id number] [id number] 94 1983 Unknown [id number] [id number] 94 1983 Unknown [id number] [id number] 94 1983 Unknown [id number] 94 Unknown [id number] 62 Social History Date Type Detail Facility Start: 11-09-2019 Tobacco smoking stat [facility] Never smoker [facility] Start: 11-09-2019 Tobacco use and exposure Never used [facility] Start: 09-12-2020 End: 10-09-2020 Alcohol intake Ex-drinker (finding) [facility] Start: 1985 Sex Assigned At Not on file O [facility] Exposure to SARS-CoV -2 (event) Not sure [facility] Medical Equipment Procedure Code Equipment Code Equipment Origin al Text Equipment Identifier Dates Substitute Bone Graft 120mm End Delivery Cannula Kit [facility] - [id number] Start: 10-09-2020 Clinical Notes 09-12-2020 to 10-09-2020 Telephone Encounter - Ayanna Carpenter MD - 10/09/2020 4:06 PM EDTTelephone Encounter - JOE COLLINS - 10/09/2020 3:48 PM EDTInstructionsNursing Notes - Rosario Basurto RN - 10/09/2020 10:00 AM EDT Note Date & Type Note Facility 10-09-2020 Miscellaneous Notes Returned call, spoke with patient and let him know that prescription will be resent. He is doing well otherwise, all questions were answered. Ayanna Carpenter MD Pt's mom called in stating the pharmacy did not receive his prescriptions. I dont see where they were ordered. Can they be sent or resent to pharmacy in EMR? documented in this encounter [facility] 10-09-2020 Hospital Discharg e instructions Milan Serrato PA-C - 10/09/2020 Images from the original note were not included. Home Care After Ambulatory Surgery The following instructions will help you care for yourself, or be cared for upon your return home today. These are guidelines for your care right after surgery only. Diet: Advance as tolerated. Activity: 50% weight bearing with a walker or crutches until seen at your first follow up visit in the office. Wound Care and Hygiene: You may remove your dressings the day after surgery. Once you remove the dressings, please do not use any alcohol, lotions, soaps or creams on the incisions including neosporin. Please have each incision covered with a waterproof dressing during showers only. Please do not submerge your incisions in water including in a bathtub, swimming pool or hot tub. Anesthesia Precautions & Expectations: After anesthesia, rest for [address], drink alcoholic beverages or make any important decisions during this time. General anesthesia may cause a sore throat, jaw discomfort or muscle aches. These symptoms can last for one or two days. What to Expect after surgery: Mild to moderate discomfort. Call your Doctor for: Signs of infection such as fever, chills, increasing pain, green or yellow discharge from your wound, foul smell from your wound, increasing redness or swelling around the incisions, loss of function of your leg or worse. Signs of blood clot such as calf pain that does not go away, shortness of breath or chest pain. Your first and second surgical follow up appointments should already be scheduled with Dr. Carpenter/ Dr Jenkins or his team. If not, please call the office. Other Instructions: Medications: (All of your medications were sent electronically to your [facility] pharmacy) Local anesthetics were put into your incision after surgery. It is not uncommon for patients to encounter more pain on the first or second day after surgery. This is the time when swelling peaks. Taking pain medications before bedtime will assist in sleeping. It is important not to drink or drive while taking narcotic pain medication. You should resume your normal medications (excluding Oral Contraceptives, Estrogen or Testosterone products) the day after surgery. Please take the following medications regardless of your pain level: Anti-Inflammatory: Meloxicam 15mg, Please take 1 tablet of Mobic daily for 6 weeks unless it causes upset stomach. If you are unable to take Mobic due to stomach upset, please call the office and we can prescribe a different anti-inflammatory medication. If you are taking Mobic, please do not take any additional NSAIDS such as Ibuprofen (Advil) or Naproxen (Aleve). DVT Prophylaxis: This medication is used to minimize the risk of blood clots. Eliquis 2.5 mg 1 tablet by mouth 2 times daily Take 1st dose on the evening of surgery If you are asked to pay a large sum of money and are unable to purchase this medication, please contact our office as we may be able to provide an alternative or help obtain this medication. Pain Medication: Acetaminophen 650 mg. Please take 1 tablet every 6-8 hours to aid in alleviation of pain. Please take these medications as needed: Pain Medication: Please do not drink alcohol, drive a car or operate machinery while taking narcotic pain medications. Oxycodone 5 mg 1-2 tablets by mouth every 6 hours as needed for moderate to severe pain If you should develop constipation you may use Senokot, two tablets twice daily until you have a bowel movement. If you are still unable to have a bowel movement while taking Senokot, please call our office. Other: You have selected to use the Egal[employer] Unit. The hip wrap was placed on your operative hip immediately following surgery. To use the unit, connect the cloth cord to the hip wrap as well as to the Game[employer] Unit. Fill the unit with ice and water as instructed on the inside of the unit. Plug the power cord into the unit and into a wall outlet. Press the power button to turn unit on, select preset 2 and hit the start/play button. You will use preset 2 for the first 4 days after surgery. On the 5th day, please begin using preset 3. You will return the [employer] Unit to the vendor per his directions. You have been given an iceman to apply to your hip for added swelling benefits. Please apply this to your hip regularly, twenty minutes on twenty minutes off, throughout the day. You should have a barrier, such as compression shorts, between your skin and the iceman. This is yours to keep. You have been given an HERNAN Bandage to apply to the hip. This will help decrease swelling after surgery. If you have any questions or concerns please do not hesitate to call our office at [phone]. Hip Arthroscopy Your Rehabilitation after surgery is just as important as the surgery itself! It is helpful to have an understanding of major precautions and goals of your rehab before going into surgery. Knowing what to expect during your post-operative rehabilitation will best prepare you for success. Precautions/Things to avoid: Do NOT sit for greater than 2 hours at a time; lean back so you do not feel a pinch Do NOT extend your hip behind you more than you would when you are walking. Do NOT twist or pivot on the surgery leg Do NOT lift your surgical leg without assistance Do NOT lift or carry more than 10 pounds How to safely walk with crutches and put weight on your operative leg: Crutch Fitting: Walking/Weight-bearing: Stair Negotiation: Use BOTH crutches to support your weight when standing/walking. Amount of weight allowed on leg: Dr. Carpenter: You should remain partial weight bearing on your surgical leg at all times. Dr. Jenkins: You should remain partial weight bearing on your surgical leg at all times. Walk with a FLAT foot on your surgical leg instead of putting weight only on your toes or keeping foot elevated off the ground Up with the Good, Down with the Bad Your crutches will always move with your surgical leg. General Rehabilitation Timeframe: This progression can vary greatly from patient to patient and criteria to begin these activities is based on pain level, strength, range of motion, and quality of movement NOT time from surgery. Beginning an activity before you have been cleared to do so by your surgeon or physical therapist may lead to increased pain and prolonged rehabilitation. Exercises to begin prior to formal Physical therapy: Perform each exercise 2-3x per day Ankle Pumps: Move your foot up and down as if pushing down or letting up on a gas pedal in a car. Quad Sets: Lie on your back with your legs straight and toes pointed toward the ceiling. Tighten your thigh muscles and push your knee down to the bed. Hold for 3 seconds and release. Glute sets: Squeeze your buttocks together. Hold for 3 seconds and release Short Arc Quad: Place a large can or rolled towel under your knee. Straighten your knee and leg. Hold 3 seconds. Passive Circumduction: You need to have someone help you with this exercise. Lie on your back. Do not lift the leg yourself but have someone lift your leg slightly. Rotate it clockwise for 2 minutes. Then rotate it counter clockwise for 2 minutes. Next, have your helper raise the leg to 30 degrees and repeat the motions. Go clockwise for 2 minutes and then counter clockwise for another 2 minutes. VIDEO available online: [email or web address] Ice/compression: Use ice packs or cold compresses. Apply ice or compress to the area for 20 to 30 minutes. Take ice/compress off the area 20 to 30 minutes before using it again. documented in this encounter [facility] 10-09-2020 Miscellaneous Notes AVS and RX explained to father by Peter KENYON Pt already has crutches at home. Family updated OP NOTE - HIP CORE DECOMPRESSION Preop Diagnosis: 1. Right hip AVN femoral head Postop Diagnosis: 1. Right hip AVN femoral head Procedure: 1. Right hip core decompression femoral head and neck 58095 2. Right hip bone grafting to femoral head AVN lesion 51277 3. Right iliac [place] [address] 4. Right hip Flouroscopy 57593 Surgeon: Ayanna Carpenter MD Agency Operator: JOSE Gomes served as credit control assistant, no qualified residents were available to assist. His assistance was necessary to help guide trocar into femoral head AVN lesion safely by coordinating the position of operative extremity and c-arm. Anesthesia: GETA Surgical Indication: The patient is an active 35-year-old male, with right hip pain for over the past 3 years or more. MRI showed large AVN lesion in superior and mid femoral head with no obvious significant articular surface collapse. The patient's symptoms were not controlled with conservative measures -- including trials of rest and activity modification, and pain medications. The patient was limited in ability to be physically active due to the hip pain. The patient was therefore interested in and deemed to be an appropriate candidate for operative intervention with a hip core decompression with bone marrow aspirate grafting to femoral head and neck. After discussing the pros and cons of treatment options and risks and benefits of surgical intervention with the patient, the patient elected to proceed with surgery with the understanding of the risks of infection, stiff joint, injury to nerve or blood vessel, numbness over operative foot or groin or thigh, blood clot, heart/lung or anesthesia complications, and continued hip pain or future hip arthritis / progression of AVN lesion and possible eventual need for KELLY. We discussed that further surgeries including hip replacement could be necessary to address additional joint pathologies. Findings: AVN lesion superior and mid portions of femoral head without any obvious areas of collapse seen. EBL: 10 cc (there was about 120 cc of bone marrow aspirate from iliac crest) Postop Plan: Patient to discharge home today if pain controlled. Foot flat weight bearing with crutches for at least first 4 weeks, then progress weight bearing as tolerated. Follow-up in clinic in 14 days for suture removal and wound check with x-rays. Special Considerations: Flouroscopy was necessary for the procedure to confirm positioning of core decompression instrument in femoral head and neck. Procedure: The patient's operative site was marked in preop holding by attending surgeon with full involvement of patient. The patient was taken to the operating room. On entering the OR a sign in was held with the anesthesia, nursing and surgical teams all present and participating and confirming the operative site and plan. The patient underwent GETA by the [facility] service. The patient was placed on the traction table and both feet were placed in well-padded traction boots. C-arm was used to confirm that excellent AP and lateral views of the operative hip could be obtained. Traction was not utilized for this case. The non operative leg was positioned in flexion ABduction / ER to move it out of the way of the c-arm. The surgical leg position in slight internal rotation. The operative hip and pelvic area was prepped and draped in standard sterile fashion. Antibiotics consisting of ancef 3 g were given within 60 minutes of incision. A surgical timeout was performed prior to incision - and nursing, anesthesia and surgical teams were all present and all parties agreed on the planned operative site and procedure. The [employer] PerFuse Percutaneous Core Decompression was utilized for the case. We first performed a bone marrow aspiration. We palpated the anterior aspect of the iliac crest. We made a small stab incision with an 11 blade. We used hemostat to clear subcu tissue down to the iliac crest. We palpated medially and laterally with hemostat to feel for inner and outer table. We brought in the [employer] BioCUE jamshidi needle and careful tapped it through the cortical bone into the medullary space about a cm. We attached 2, 60 cc syringes and collected about 120 cc of bone marrow aspirate. We removed jamshidi needle. The small stab incisions was closed with 3-0 nylon simple suture. No significant bleeding was encountered. The bone marrow aspirate was then taken for spin down using the [employer] system. Next we brought in c-arm and obtained AP and lateral views of the femoral head/neck. Appropriate starting points on both projections were marked out by overlaying a trocar over the hip and taking c-arm image to obtain starting angle to reach the anterior superior portion of femoral head. We used an 11 blade to make small 1 cm incision over the subtroch region below vastus ridge. We incised IT band and with hemostat pushed down to lateral cortical bone. After appropriate starting point was obtained, the [employer] trocar was advanced from along the femoral neck using AP and lateral fluoroscopy. We took care to verify the trocar position as the trocar was advanced along the neck while stopping in the necrotic tissue. The trocar was gentle advanced upward along the head and neck with gentle mallet taps and no excessive force was needed to advance the trocar. We advanced into the anterior superior portion of the femoral head where the AVN lesion was present. We stopped about 4 mm short of subchondral bone to avoid any intra-articular perforations. The handle and trocar were removed leaving the cannula in position within the AVN lesion in the femoral head. We attached a syringe containing almost 9 cc of BMAC to the luer lock on the cannula. We injected the BMAC (a total of 12 cc was harvested) into the femoral head and superior lesion with no excessive resistance encountered. We then removed the syringe and placed the tamp inside the cannula to push remaining BMAC from the cannula into the femoral head. We also used calcium phosphate and loaded that into 5, 1cc syringes (saline was used to mix with the calcium phosphate). We then attached each syringe to the cannula and injection the calcium phosphate into the femoral head and neck areas, again pushing any remaining bone graft from the cannula with the tamp and gentle tapping the cannula back a cm after each injection. The grafting was visualization under fluoro. Once satisfied with this grafting of the femoral head lesion and neck, the PerFuse Slide Hammer was attached by threading the slide hammer into the screw cap of the reusable handle and with gentle back taps the cannula was removed. The lateral hip incision was closed with 2-0 Vicryl subcu and 3-0 nylon sutures for skin. Final sponge and needle counts were correct. A dressing consisting of xeroform, 4x4, tegaderm and hip spica hernan wrap were applied. A cryocuff will be used postop. Sign out was held. Patient was extubated and taken to PACU in stable condition. Ayanna Carpenter MD [place] ([phone]) PRE OPERATIVE DIAGNOSIS Avascular necrosis of bone of right hip [M87.051] POST OPERATIVE DIAGNOSIS Post-Op Diagnosis Codes: * Avascular necrosis of bone of right hip [M87.051] PROCEDURE PERFORMED Procedure(s) (LRB): right hip core decompression with BMAC (Right) GRAFT BONE TO FEMORAL HEAD/NECK OR INTERTROCHANTERIC/SUBTROCHANTERIC AREA (Right) EXCISION BONE CYST/TUMOR HIP PELVIC W/ AUTOGRAFT VIA SEPARATE INCISION (Right) PRIMARY CLOSURE Yes INTRAOPERATIVE FINDINGS avn superior right femoral head wo/ significant collapse SURGEON Surgeon(s) and Role: * Ayanna Carpenter MD - Primary ANESTHESIOLOGIST Anesthesiologist: Ruslan Day MD MODEL MAKER PLASTER: Fernie Calle APRN-MODEL MAKER PLASTER SURGICAL STAFF [employer] Hand Engraver: Susy Isbell RN; Heather Clark RN Physician Agency Operator: Milan Serrato PA-C COMPLICATIONS None ESTIMATED BLOOD LOSS 10 ml SPECIMENS No specimen sent * No specimens in log * Ayanna Carpenter MD October 09, 2020 8:37 AM @ 071 handoff report given to PANTOGRAPH OPERATOR Bettye and SNEHA . All questions answered and pt taken to OR in stretcher. documented in this encounter [facility] 10-09-2020 History and physical note I have examined the patient and reviewed the H&P, and there are no changes since the last H&P was completed. Milan Serrato PA-C Images from the original note were not included. Pre-Operative Assessment (PAT) Outpatient Clinic Note H&P Date of Evaluation: 09/12/2020 Date of Surgery: 10/09/20 Surgeon: Dr Carpenter Pre-Op Diagnosis: Avascular necrosis of bone of right hip Planned Procedure: ASPIRATION BONE MARROW - Right CHIEF COMPLAINT Preoperative cardiovascular testing and medication management for major surgery HISTORY [place] is a 35 y.o. male with the below history presenting for preoperative evaluation. Chronic medical problems are stable with no acute changes in symptoms or medications: Yes Anesthesia: Personal or Family history of problems related to anesthesia (ex.Malignant Hyperthermia): No History of difficult intubations: No Pacer/AICD: No; PONV: No Penicillin Allergy: No Cardiac: Hx of Cardiac Disease/Stents No Current Symptoms of Angina - No Current Symptoms of Decompensated Heart Failure - No Use of Beta-Blockers - No Current Functional Status ? 4 - Yes Pulmonary: History of KARISSA: no History of asthma or COPD: No Smoker: no STOP-BANG Risk Assessment: STOP Questions o Do you snore? Yes o Frequently tired during the day? Yes o Observed gasping or choking episodes while asleep? No o Diagnosis of/or treated for high blood pressure? No BANG Questions o Age more than 50? No o Gender assignment at : Male? Yes o Neck circumference greater than 40 cm? Yes o BMI more then 35? - Body mass index is 46.29 kg/m . Yes High risk: Yes (High risk ? 5 STOP-BANG; STOP ? 2 AND Male; STOP ? 2 AND BMI > 35 kg/m2; STOP ? 2 AND Neck ? 40 cm) MEDICAL HISTORY: Past Medical History: Diagnosis Date Avascular necrosis Nini's disease No past surgical history on file. SOCIAL HISTORY: reports that he has never smoked. He has never used smokeless tobacco. He reports previous alcohol use. He reports that he does not use drugs. FAMILY HISTORY: family history includes Heart Failure in his maternal grandmother; Hypertension in his father; Lung Cancer in his mother. MEDICATIONS: Current Outpatient Medications Medication Instructions DISABILITY PLACARD Disability placard end date 01/09/2021 levothyroxine (SYNTHROID) 200 mcg, Oral, DAILY multivitamin w/ minerals tablet 1 tablet, Oral, DAILY ALLERGIES: No Known Allergies REVIEW OF SYSTEMS The patient denies any chest pain on exertion, shortness of breath, orthopnea or palpitation ROS also negative for fever, chills, headache, dizziness, cough, sputum, nausea, vomiting, diarrhea, constipation, dysuria, hematuria, rashes or easy bleeding. All other systems were reviewed and were negative OBJECTIVE Vitals: 09/12/20 0959 BP: 149/81 Pulse: 77 Resp: 14 SpO2: 98% Weight: 136.1 kg (300 lb) Height: 1.715 m (5' 7.5) Body mass index is 46.29 kg/m . General:35 y.o. male in NAD, alert and oriented x 3 HEENT: Normocephalic, pupils equal round and reactive to light, EOMI, Neck: Full ROM, supple, no lymphadenopathy Pulmonary: bilateral breath sounds, clear to auscultation, no use of accessory muscles, no wheezes/rhonchi/rales Cardiovascular:Regular rate and rhythm. Normal S1, S2, No murmurs, rubs or gallops Abdomen: obese, soft, nontender, nondistended, normoactive bowel sounds, No Hepatosplenomegaly Extremities: No cyanosis, clubbing or edema. Normal peripheral pulses noted. Neuro: Cranial nerves are grossly intact, No focal deficits noted, moving all 4 extremities. Skin: warm, dry, intact; no erythema or rash DATA REVIEW Lab Results Component Value Date WBC 6.58 09/12/2020 HGB 16.3 09/12/2020 HCT 51.8 (H) 09/12/2020 PLATELET 340 (H) 09/12/2020 MCV 89.5 09/12/2020 Lab Results Component Value Date SODIUM 142 09/12/2020 POTASSIUM 4.3 09/12/2020 CHLORIDE 103 09/12/2020 CO2 29 09/12/2020 BUN 18 09/12/2020 CREATSERUM 1.14 09/12/2020 GLUCOSE 73 11/09/2019 Lab Results Component Value Date INR 1.0 09/12/2020 INR 1.1 11/09/2019 PT 13.4 09/12/2020 PT 13.7 11/09/2019 In addition to the labs above, I have personally reviewed all laboratory data [facility] E[facility] E[facility]: No results found for this or any previous visit. I have personally reviewed the imaging findings in the chart. ASSESSMENT AND PLAN Pre-operative Risk Evaluation - [place] is at a Acceptable risk for a intermediate risk surgery - Per ACC/AHA guidelines, the patient requires no further testing at this time. 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 -pt reports he is currently working on dose adjustment with PCP, next appointment with PCP 11/13 -TSH levels stable Hypovitaminosis D -dicussed with patient, follow up with PCP outpatient for supplement recommendations Obesity Body mass index is 46.29 kg/m .:- Lifestyle modifications Perioperative medication recommendations: THE DAY OF your surgery: WHAT TO DO ABOUT YOUR MEDICATIONS: levothyroxine 100 MCG tablet Ok to take morning of surgery multivitamin w/ minerals tablet Do Not take 3 days prior to surgery Above recommendations were discussed with the patient, and patient understood and agreed with the plan outlined above. Thank you for allowing us to participate in the care of [place]. LEONARD [facility] documented in this encounter [facility] 10-09-2020 Surgical operatio n note In compliance with the laws of the [facility], the following conditions have been met for extending the dose or duration of opioid pain medication for the treatment of acute pain. Diagnosis: 1. Right hip AVN femoral head 2. Pain following surgery or procedure (ICD10 G89.18) 7 day limit exceeded due to pain that is expected to persist longer than 7 days. Pathology of pain: Surgery 30 MED average exceeded due to: Major Orthopedic Surgery - S//P Right Hip core decompression with BMAC on 10/09/2020 Reason for exceeding the 30 MED average: Pain after orthopedic surgery not acceptably controlled by non-opioid medication. This is the lowest dose need for his medical condition. Patient will be on multi-modal pain control post op including NSAIDs and muscle relaxants. The patient's account was reviewed on the [place] Automated Rx Reporting System: OARRS. Their controlled substance medication history was found to be aligned with health and medication history. Patient has had no adverse outcomes with this medication. Milan Serrato PA-C documented in this encounter [facility] 09-26-2020 Nurse Note COVID screening completed by asking patient the following question: Have you had new onset of flu like symptoms, fever, chills, or loss of taste/smell over the past 5 days? Patient answered: no Covid test scheduled on 10/04 Patient informed to call their surgeon if they develop any symptoms listed above or if they have changes in health prior to surgery. Informed patient of importance to self-quarantine from 10/04 until surgery on 10/09 Self isolation instructions include: The patient has been asked to self-isolate, remaining at home or their yard, with no visitors after covid test until surgery. The patient may only leave for urgent medical care, but must wear a facemask and perform appropriate hand hygiene. Ideally the household members will also self-isolate, remaining at home. ? If household contacts cannot stay at home during this window (e.g. need to go to work),the patient should self-isolate from those household members within the home. This involves maintaining social distancing, wearing a mask around those members, and sleeping in a separate room. If the household member is not self-isolating, they should maintain social distancing, wear a mask and practice good hand-washing hygiene at all times when leaving the home to go to work, get groceries, pickup carryout, etc. They should avoid traveling, large gatherings and restaurants and bars. Patient has chosen the following swab location and has been given the following instructions: [facility] [address] [facility] [address] Hours of Operation: Thursday - Thursday: 7:30 a.m. 4 p.m. documented in this encounter [facility] 09-12-2020 History of Presen t illness Narrative Chief Complaint Patient presents with Right Hip - Pre-operative Evaluation R hip. Pt is here for f/u R hip pre op consent. DOS 10/09/20. CC: Preoperative assessment and consent for Right Hip Core Decompression with Bone Marrow Aspirate. HPI: Pt presents for Right hip pain, preoperative assessment and consent for Right Hip Core Decompression with Bone Marrow Aspirate. Do you have a clotting problem? no Have you ever had a blood clot in your legs or lungs? no Do you have an immediate family member who has ever had a blood clot in the legs or lungs? no Explanation for above NA Do you have a heart arrhythmia called atrial fibrillation or AFib? no Do you smoke or use other products with nicotine? no Have you ever been diagnosed with cancer? no Have you ever had a stroke?no Do you have problems with swelling in the legs or varicose veins?no Do you have a bleeding problem that has been diagnosed by your doctor? no Have you ever had bleeding that occurred in your stomach, bowels or brain? no Do you drink more than 2 alcoholic drinks per week? no Has a doctor ever had a difficult time controlling your bleeding in the past? no Do you currently take any of the following medications? Coumadin no Plavix no Aspirin no Heparin no Xarelto no Pradaxa no Eliquis no Lovenox no Are you allergic to any of the following medications? Coumadin no Plavix no Aspirin no Heparin no Xarelto no Pradaxa no Eliquis no Lovenox no After discussing the pros and cons of treatment options and risks and benefits of surgical intervention, [place] has elected to proceed with surgery at this time. They understand there's no guarantee of results with surgery and there are always risks of infection, stiff joint, injury to nerve, muscle or blood vessel, DVT/PE, anesthesia complications, failure of the procedure which could result in femoral head collapse, the need for KELLY or continued hip pain, etc. The procedure and recovery were discussed and all questions answered. [place] understands that this is an elective procedure and should they have any further questions he/she is to give me a call. Assessment/Plan: Preoperative assessment and consent for Right Hip Core Decompression with Bone Marrow Aspirate. Pt has NKDA, okay for Ancef. Pt has no known personal or family history of blood clots, Eliquis will be used post operatively. Pt has no known personal cardiac history. He will follow the instruction of the [facility] nurses for jj-operative medication management. Patient reports that they do not use any products that contain nicotine. Pt received and signed a copy of the controlled substance agreement while in the office today. Pt was verbally notified that we will only provide pain medication for 6 weeks post operatively. After 6 weeks, if pt still needs pain medication, they will be required to contact their PCP or pain management physician. O[place] report was verified. A prescription for a disability placard was provided at today's visit. Preoperative soap was provided at today's visit. An informational pamphlet for the [employer] was also provided. He/She will contact the office prior to the surgery date if he/she is interested in renting the unit for the post operative period. PAT to be completed today. As always, the pt may call the office with any further questions or concerns. Eliquis APAP Mobic Oxycodone Crutches Richard TSH levels remain stable at this time TSH Date/Time Value Ref Range Status 09/12/2020 10:31 AM 0.692 0.550 - 4.780 uIU/mL Final Milan Serrato PA-C documented in this encounter [facility] 09-12-2020 History and physical note Images from the original note were not included. Pre-Operative Assessment (PAT) Outpatient Clinic Note H&P Date of Evaluation: 09/12/2020 Date of Surgery: 10/09/20 Surgeon: Dr Carpenter Pre-Op Diagnosis: Avascular necrosis of bone of right hip Planned Procedure: ASPIRATION BONE MARROW - Right CHIEF COMPLAINT Preoperative cardiovascular testing and medication management for major surgery HISTORY [place] is a 35 y.o. male with the below history presenting for preoperative evaluation. Chronic medical problems are stable with no acute changes in symptoms or medications: Yes Anesthesia: Personal or Family history of problems related to anesthesia (ex.Malignant Hyperthermia): No History of difficult intubations: No Pacer/AICD: No; PONV: No Penicillin Allergy: No Cardiac: Hx of Cardiac Disease/Stents No Current Symptoms of Angina - No Current Symptoms of Decompensated Heart Failure - No Use of Beta-Blockers - No Current Functional Status ? 4 - Yes Pulmonary: History of KARISSA: no History of asthma or COPD: No Smoker: no STOP-BANG Risk Assessment: STOP Questions o Do you snore? Yes o Frequently tired during the day? Yes o Observed gasping or choking episodes while asleep? No o Diagnosis of/or treated for high blood pressure? No BANG Questions o Age more than 50? No o Gender assignment at : Male? Yes o Neck circumference greater than 40 cm? Yes o BMI more then 35? - Body mass index is 46.29 kg/m . Yes High risk: Yes (High risk ? 5 STOP-BANG; STOP ? 2 AND Male; STOP ? 2 AND BMI > 35 kg/m2; STOP ? 2 AND Neck ? 40 cm) MEDICAL HISTORY: Past Medical History: Diagnosis Date Avascular necrosis Nini's disease No past surgical history on file. SOCIAL HISTORY: reports that he has never smoked. He has never used smokeless tobacco. He reports previous alcohol use. He reports that he does not use drugs. FAMILY HISTORY: family history includes Heart Failure in his maternal grandmother; Hypertension in his father; Lung Cancer in his mother. MEDICATIONS: Current Outpatient Medications Medication Instructions DISABILITY PLACARD Disability placard end date 01/09/2021 levothyroxine (SYNTHROID) 200 mcg, Oral, DAILY multivitamin w/ minerals tablet 1 tablet, Oral, DAILY ALLERGIES: No Known Allergies REVIEW OF SYSTEMS The patient denies any chest pain on exertion, shortness of breath, orthopnea or palpitation ROS also negative for fever, chills, headache, dizziness, cough, sputum, nausea, vomiting, diarrhea, constipation, dysuria, hematuria, rashes or easy bleeding. All other systems were reviewed and were negative OBJECTIVE Vitals: 09/12/20 0959 BP: 149/81 Pulse: 77 Resp: 14 SpO2: 98% Weight: 136.1 kg (300 lb) Height: 1.715 m (5' 7.5) Body mass index is 46.29 kg/m . General:35 y.o. male in NAD, alert and oriented x 3 HEENT: Normocephalic, pupils equal round and reactive to light, EOMI, Neck: Full ROM, supple, no lymphadenopathy Pulmonary: bilateral breath sounds, clear to auscultation, no use of accessory muscles, no wheezes/rhonchi/rales Cardiovascular:Regular rate and rhythm. Normal S1, S2, No murmurs, rubs or gallops Abdomen: obese, soft, nontender, nondistended, normoactive bowel sounds, No Hepatosplenomegaly Extremities: No cyanosis, clubbing or edema. Normal peripheral pulses noted. Neuro: Cranial nerves are grossly intact, No focal deficits noted, moving all 4 extremities. Skin: warm, dry, intact; no erythema or rash DATA REVIEW Lab Results Component Value Date WBC 6.58 09/12/2020 HGB 16.3 09/12/2020 HCT 51.8 (H) 09/12/2020 PLATELET 340 (H) 09/12/2020 MCV 89.5 09/12/2020 Lab Results Component Value Date SODIUM 142 09/12/2020 POTASSIUM 4.3 09/12/2020 CHLORIDE 103 09/12/2020 CO2 29 09/12/2020 BUN 18 09/12/2020 CREATSERUM 1.14 09/12/2020 GLUCOSE 73 11/09/2019 Lab Results Component Value Date INR 1.0 09/12/2020 INR 1.1 11/09/2019 PT 13.4 09/12/2020 PT 13.7 11/09/2019 In addition to the labs above, I have personally reviewed all laboratory data in the EMR and CareEverywhere ECHO: No results found for this or any previous visit. I have personally reviewed the imaging findings in the chart. ASSESSMENT AND PLAN Pre-operative Risk Evaluation - [place] is at a Acceptable risk for a intermediate risk surgery - Per ACC/AHA guidelines, the patient requires no further testing at this time. 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 -pt reports he is currently working on dose adjustment with PCP, next appointment with PCP 11/13 -TSH levels stable Hypovitaminosis D -dicussed with patient, follow up with PCP outpatient for supplement recommendations Obesity Body mass index is 46.29 kg/m .:- Lifestyle modifications Perioperative medication recommendations: THE DAY OF your surgery: WHAT TO DO ABOUT YOUR MEDICATIONS: levothyroxine 100 MCG tablet Ok to take morning of surgery multivitamin w/ minerals tablet Do Not take 3 days prior to surgery Above recommendations were discussed with the patient, and patient understood and agreed with the plan outlined above. Thank you for allowing us to participate in the care of [place]. LEONARD Wood Division of Hospital Medicine documented in this encounter [facility] 09-12-2020 Instructions LEONARD Wood - 09/12/2020 10:15 AM EDT Patient Name: Genaro Lake You will be contacted 2 business days prior to your procedure date and will be notified of arrival time and where to register. What you need to bring to the hospital: 1. A photo ID 2. Insurance Card 3. Co-pay for insurance if applicable 4. A list of ALL MEDICATIONS you are currently taking including the dose and times that you take them You will be turning this list over to your nurse. 5. Crutches/walker if applicable. 6. CPAP machine if applicable. What to leave at home: 1. ALL valuables, cell phone, wallet, purse 2. ALL jewelry including watches, wedding bands and ANY FORM of piercing. 3. DO NOT wear lotion, makeup, nail [place], contact lens, or perfume/cologne. 4. DO NOT bring actual pill bottles or home medications unless instructed to do so. PRIOR to your surgery: 1. Do NOT shave, or pluck hair from anywhere near the surgical site the day of or the day before surgery. Bathe the night before and the morning of surgery. 2. DO NOT eat or drink ANYTHING after midnight or the day surgery. As well as, no gum or breath mints after midnight. 3. DO NOT smoke ANYTHING after midnight the night before your surgery. 4. You may brush your teeth and rinse/gargle you mouth after midnight but avoid drinking too much water 5. ABSTAIN from using nicotine in any form around the time of your surgery. Smoking or Chewing tobacco can delay wound healing and result in increased risk of infection after surgery. 6. ABSTAIN from alcohol or drug use for one week prior to surgery. Do not show up to your surgery intoxicated or under the influence of any drugs. Drug use within 24 hour of any kind could result in a cancellation of your procedure 7. If you are seen in ER or have any unplanned medical visits between now and your surgery date, please notify your surgeon's office prior to your day of surgery. THE DAY OF your surgery: WHAT TO DO ABOUT YOUR MEDICATIONS: levothyroxine 100 MCG tablet Ok to take morning of surgery multivitamin w/ minerals tablet Do Not take 3 days prior to surgery Medications that may need to be STOPPED 24 hours or greater BEFORE surgery. 1. All herbal medications should be stopped 7 days before surgery. (fish oil, glucosamine, garlic, tumeric, etc) 2. Hold NSAIDS for 5 days (Aleve, Motrin, Ibuprofen, Advil, Naproxen, Diclofenac, Celebrex and Meloxicam). It is okay to take Tylenol. 3. Hold Multi-Vitamins for 3 days. 4. Please contact [facility] if you have changes to your medications before surgery. We work in conjunction with your surgeon but cannot any specific questions about your surgery. If you have any questions specific to our visit today for your preoperative testing, please contact the [facility] at [phone]. Please direct any questions regarding your surgery to your surgeon s office documented in this encounter [facility] Evaluation note Diagnosis Avascular necrosis of bone of right hip- Primary Right hip pain Pain in joint, pelvic region and thigh Avascular necrosis of bone of right hip [facility] Diagnosis Avascular necrosis of bone of right hip- Primary Right hip pain- Primary Pain in joint, pelvic region and thigh Right hip pain Pain in joint, pelvic region and thigh Avascular necrosis of bone of right hip [facility] Avascular necrosis of bone of right hip- Primary Preoperative examination- Primary Preoperative examination, unspecified Nini's disease Chronic lymphocytic thyroiditis Vitamin D deficiency Unspecified vitamin D deficiency BMI 45.0-49.9, adult Body Mass Index 45.0-49.9, adult Avascular necrosis of bone of right hip Avascular necrosis of bone of right hip [facility] Diagnosis Avascular necrosis of bone of right hip- Primary [facility]* Auth/Cert Specialty Diagnoses / Procedures Referred By Kitty barnes Referred To Contact Diagnoses Avascular necrosis of bone of right hip Avascular necrosis of bone of right hip [M87.051] Procedures SD DIAGNOSTIC BONE MARROW ASPIRATIONS SD BONE GRAFT FEMUR HEAD/NECK/RIDGE SD EXCISISON BONE CYST BENIGN TUMOR,PELVIS/HIP, AUTOGRAFT SEP INCISION ASPIRATION BONE MARROW GRAFT BONE TO FEMORAL HEAD/NECK OR INTERTROCHANTERIC/SUBTROCHANTERIC AREA EXCISION BONE CYST/TUMOR HIP PELVIC W/ AUTOGRAFT VIA SEPARATE INCISION Referral ID Status Reason Start Date Expiration Date Visits Re quested Visits Authorized [id number] [address] [facility] Summary Purpose Family History No Family History Records FoundNo Family History Records FoundNo Family History Records FoundNo Family History Records Found Advance Directives No Advanced Directives Records FoundNo Advanced Directives Records FoundNo Advanced Directives Records FoundNo Advanced Directives Records Found Reason for Referral Specialty Diagnoses / Procedures Referred By Kitty barnes Referred To Contact Diagnoses Right hip pain Procedures XR HIP RIGHT 2 VIEWS Milan Serrato, JOSE FRANCISCO [address] [place] [address] Referral ID Status Reason Start Date Expiration Date V isits Requested Visits Authorized [id number] New Request 09/12/2020 10/07/2021 1 1 Additional Source Comments (unrecognized sect ion and content) No Status Records FoundNo Status Records FoundNo Status Records FoundNo Status Records Found INFORMATION SOURCE (unrecogn ized section and content) DATE CREATED AUTHOR 10/21/2018 [facility] DATE CREATED AUTHOR AUTHOR'S ORGANIZ ATION 10/06/2020 [facility] DATE CREATED AUTHOR AUTHOR'S ORGANIZ ATION 03/13/2021 [facility] DATE CREATED AUTHOR AUTHOR'S ORGANIZ ATION 04/24/2024 [facility] Reason for Visit (unrecogniz ed section and content) Specialty Diagnoses / Procedures Referred By Kitty barnes Referred To Contact Diagnoses Right hip pain Procedures XR HIP RIGHT 2 VIEWS Milan Serrato, JOSE FRANCISCO [address] [place] [address] Referral ID Status Reason Start Date Expiration Date V isits Requested Visits Authorized [id number] New Request 09/12/2020 10/07/2021 1 1 Reason Comments Pre-operative Evaluation R hip. Pt is he re for f/u R hip pre op consent. DOS 10/09/20. Reason Comments Preoperative Assessment Reason Onset Date Comments Other 10/09/2020 Care Teams (unrecognized sec tion and content) Workgroup Leader Relationship Specialty Start Date End Date Samira Serna CNP [address] [place] [phone] PCP - General Nurse Practitioner - Family 11/10/19 Samira Serna CNP [address] [place] [phone] Nurse Practitioner - Family 11/09/19 Workgroup Leader Relationship Specialty Start Date End Date Samira Serna CNP [address] [place] [phone] PCP - General Nurse Practitioner - Family 11/10/19 Samira Serna CNP [address] [place] [phone] Nurse Practitioner - Family 11/09/19 Workgroup Leader Relationship Specialty Start Date End Date Samira Serna CNP [address] [place] [phone] PCP - General Nurse Practitioner - [facility] 11/10/19 Samira Serna CNP [address] [place] [phone] Nurse Practitioner - [facility] 11/09/19 Workgroup Leader Relationship Specialty Start Date End Date Samira Serna CNP [address] [place] [phone] PCP - General Nurse Practitioner - [facility] 11/10/19 Samira Serna CNP [address] [place] [phone] Nurse Practitioner - [facility] 11/09/19 Workgroup Leader Relationship Specialty Start Date End Date Samira Serna CNP [address] [place] [phone] PCP - General Nurse Practitioner - [facility] 11/10/19 Samira Serna CNP [address] [place] [phone] Nurse Practitioner - [facility] 11/09/19 Scheduled Active and Recently Administ ered Medications (unrecognized section and content) Medication Order 10/07/2020 10/08/2020 10/09/2020 acetaminophen (TYLENOL) tablet 975 mg (COMPLETED) 975 mg, Oral, ONCE, 1 dose, On Thu10/09/20 at 0700, Pre-op/Pre-Proc 0632 (Given - Provid er: Michael Arciniega RN) ceFAZolin (ANCEF) 2 g in dextrose premix IVPB (COMPLETED) 2 g, Intravenous, Administer over 15 Minutes, ONCE, 1 dose, On Thu10/09/20 at 0545, Pre-op/Pre-Proc 0725 (Given - Provid er: Fernie Calle APRN-[facility]) Continuous Medication Order 10/07/2020 10/08/2020 10/09/2020 lactated ringers IV solution Intravenous, at 50 mL/hr, CONTINUOUS, Starting on Thu10/09/20 at 0545, Until Thu10/09/20 at 1214, Pre-op/Pre-Proc 0549 ($$New Bag$$ - Provider: Michael Arciniega RN)1005 (Stopped - Provider: Rosario Basurto, CHANT[place]) PRN Medication Order 10/07/2020 10/08/2020 10/09/2020 haloperidol lactate (HALDOL) injection 1 mg (COMPLETED) 1 mg, Intravenous, ONCE NEEDED, 1 dose, Starting on Thu10/09/20 at 0835, Until Thu10/09/20 at 2359, Refractory Nausea/vomiting, Use if patient still experiencing nausea/vomiting after 1st and 2nd line medications. Do not administer within 6 hours of intra-operative dose., Recovery 0913 (Given - Provid er: Rosario Basurto, CHANTALE) HYDROmorphone (DILAUDID) injection 0.2 mg(Linked Group 1) 0.2 mg, Intravenous, EVERY 5 MINUTES NEEDED, Starting on Thu10/09/20 at 0835, Until Thu10/09/20 at 1214, Moderate Pain, Severe Pain, Use as initial dose. Higher dose may be administered if lower dose did not result in adverse effects (RR<10, decrease in level of consciousness) and was previously documented as ineffective. May give a total of 4mg in PACU., Recovery HYDROmorphone (DILAUDID) injection 0.5 mg(Linked Group 1) 0.5 mg, Intravenous, EVERY 5 MINUTES NEEDED, Starting on Thu10/09/20 at 0835, Until Thu10/09/20 at 1214, Moderate Pain, Severe Pain, Higher dose may be administered if lower dose did not result in adverse effects (RR<10, decrease in level of consciousness) and was previously documented as ineffective. Decrease back to lower dose if patient has adverse effects, or no PRN used in previous 30 minutes. May give a total of 4mg in PACU ., Recovery ketorolac (TORADOL) injection (CANCELED) NEEDED, Starting on Thu10/09/20 at 0721, Until Thu10/09/20 at 0856, Intra-op/Intra-Proc 0721 (Given - Provid er: Ayanna Carpenter MD) morphine (PF) injection (CANCELED) NEEDED, Starting on Thu10/09/20 at 0721, Until Thu10/09/20 at 0856, Intra-op/Intra-Proc 0721 (Given - Provid er: Ayanna Carpenter MD) oxyCODONE (ROXICODONE) tablet 5 mg(Linked Group 2) 5 mg, Oral, EVERY 4 HOURS NEEDED, Starting on Thu10/09/20 at 0835, Until Thu10/09/20 at 1214, Moderate Pain, Severe Pain, Use as initial dose. Higher dose may be administered if lower dose was previously documented as ineffective and did not result in adverse effects (RR<10, negative change in RASS of 2 or more)., Recovery oxyCODONE HCl (ROXICODONE) tablet 10 mg(Linked Group 2) 10 mg, Oral, EVERY 4 HOURS NEEDED, Starting on Thu10/09/20 at 0835, Until Thu10/09/20 at 1214, Moderate Pain, Severe Pain, Higher dose may be administered if lower dose was previously documented as ineffective and did not result in adverse effects (RR<10, negative change in RASS of 2 or more). Decrease back to lower dose if patient has adverse effects or no PRN use in previous 12 hours. Hold for sedation., Recovery ropivacaine (NAROPIN) 0.5% injection (CANCELED) NEEDED, Starting on Thu10/09/20 at 0721, Until Thu10/09/20 at 0856, Intra-op/Intra-Proc 0721 (Given - Provid er: Ayanna Carpenter MD) No Frequency Medication Order 10/07/2020 10/08/2020 10/09/2020 acetaminophen (TYLENOL) tablet 1 dose, Starting on Thu10/09/20 at 0630, Until Thu10/10/20 at 0645, Created by cabinet override, Recovery 0645 (Canceled Entry - Provider: System Discharge - Comment: Automatically canceled at discontinue of medication order) ceFAZolin (ANCEF) in dextrose premix IVPB 1 dose, Starting on Thu10/09/20 at 0552, Until Thu10/10/20 at 0600, Created by cabinet override, Recovery 0600 (Canceled Entry - Provider: System Discharge - Comment: Automatically canceled at discontinue of medication order) haloperidol lactate (HALDOL) injection 1 dose, Starting on Thu10/09/20 at 0913, Until Thu10/10/20 at 0930, Created by cabinet override, Recovery 09 (Canceled Entry - Provider: System Discharge - Comment: Automatically canceled at discontinue of medication order) Linked Groups Order Group 1: HYDROmorphone (DILAUDID) injection 0.2 mgJump to med 0.2 mg, Intravenous, EVERY 5 MINUTES NEEDED, Starting on Thu10/09/20 at 0835, Until Thu10/09/20 at 1214, Moderate Pain, Severe Pain
Use as initial dose. Higher dose may be administered if lower dose did not result in adverse effects (RR<10, decrease in level of consciousness) and was previously documented as ineffective. May give a total of 4mg in PACU.
Recovery Or HYDROmorphone (DILAUDID) injection 0.5 mgJump to med 0.5 mg, Intravenous, EVERY 5 MINUTES NEEDED, Starting on Thu10/09/20 at 0835, Until Thu10/09/20 at 1214, Moderate Pain, Severe Pain
Higher dose may be administered if lower dose did not result in adverse effects (RR<10, decrease in level of consciousness) and was previously documented as ineffective. Decrease back to lower dose if patient has adverse effects, or no PRN used in previous 30 minutes. May give a total of 4mg in PACU .
Recovery Group 2: oxyCODONE (ROXICODONE) tablet 5 mgJump to med 5 mg, Oral, EVERY 4 HOURS NEEDED, Starting on Thu10/09/20 at 0835, Until Thu10/09/20 at 1214, Moderate Pain, Severe Pain
Use as initial dose. Higher dose may be administered if lower dose was previously documented as ineffective and did not result in adverse effects (RR<10, negative change in RASS of 2 or more).
Recovery Or oxyCODONE HCl (ROXICODONE) tablet 10 mgJump to med 10 mg, Oral, EVERY 4 HOURS NEEDED, Starting on Thu10/09/20 at 0835, Until Thu10/09/20 at 1214, Moderate Pain, Severe Pain
Higher dose may be administered if lower dose was previously documented as ineffective and did not result in adverse effects (RR<10, negative change in RASS of 2 or more). Decrease back to lower dose if patient has adverse effects or no PRN use in previous 12 hours. Hold for sedation.
Recovery FOR RECORDS PERTAINING TO PATIENTS WHO ARE OR HAVE BEEN ENROLLED IN A CHEMICAL DEPENDENCY/SUBSTANCEABUSE PROGRAM, SOME INFORMATION MAY BE OMITTED. This clinical summary was aggregated from multiple sources. Caution should be exercised in using it in the provision of clinical care. This summary normalizes information from multiple sources, and as a consequence, information in this document may materially change the coding, format and clinical context of patient data. In addition, data may be omitted in some cases. CLINICAL DECISIONS SHOULD BE BASED ON THE PRIMARY CLINICAL RECORDS. [facility] provides no warranty or guarantee of the accuracy or completeness of information in this document.
== END | disposition home or self-care (01) ==
LOC: LAB 07:21
PROVIDERS: Referring Provider Internal Medicine Endocrinology, Diabetes & Metabolism; Visit Provider Internal Medicine Endocrinology, Diabetes & Metabolism
DX: E03.8 Other specified hypothyroidism (principal); E06.3 Autoimmune thyroiditis
CPT/HCPCS: 36415; 84439; 84443